=== PATIENT | female | born 1945 | race Caucasian/White ===

== ENCOUNTER 2021-02-01 23:34 | Inpatient (IN) | payer MEDICARE, OTHER, SELFPAY ==
[2021-02-01 23:59] VITALS: BP 131/64; PULSE 70; RESP 22; TEMP 36.3; O2SAT 84; BMI 24.5
[2021-02-02] VITALS (44 sets, daily range): BP systolic 92–130; BP diastolic 47–76; PULSE 57–90; RESP 16–26; TEMP 36.9; O2SAT 85–98; BMI 25.1
[2021-02-02] MEDS: albuterol 8 gm MDI 2 PUFF INHALATION (00:10)
--- NOTE | 2021-02-02 00:23 | XRR_ITS ---
PROCEDURE INFORMATION: Exam: XR Chest Exam date and time: 02/02/2021 12:23 AM Age: 75 years old Clinical indication: Dyspnea; Additional info: SOB TECHNIQUE: Imaging protocol: XR of the chest. Views: 1 view. COMPARISON: CR Chest 2 views* [id number] 04/04/2017 11:09 AM FINDINGS: Lungs: There are patchy bilateral interstitial infiltrates present in the mid and lower hemithoraces bilaterally, findings that suggest a bilateral interstitial pneumonia. Pleural spaces: Unremarkable. No pleural effusion. No pneumothorax. Heart/Mediastinum: Unremarkable. No cardiomegaly. Bones/joints: Unremarkable. XR/XR chest 1V portable [id number] IMPRESSION: Patchy bilateral interstitial opacities, findings suggesting a bilateral interstitial pneumonia.
--- NOTE | 2021-02-02 00:23 | ECG_ITS ---
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 Measurements Intervals [place] Rate: 70 P: 113 AL: 195 QRS: -14 QRSD: 88 T: 27 QT: 358 QTc: 388 Interpretive Statements SINUS RHYTHM POSSIBLE ANTERIOR MYOCARDIAL INFARCTION , OF INDETERMINATE AGE [30 ms Q WAVE IN V3/V4, OR R < 0.2 mV IN V4] INFERIOR MYOCARDIAL INFARCTION , OF INDETERMINATE AGE [40+ ms Q WAVE AND/OR ST/T ABNORMALITY IN II/aVF] No previous ECG available for comparison Electronically Signed On 02-02-2021 17:09:17 CDT by Kevin Luque M.D. [id number]
[2021-02-02 00:34] LABS: Basophils # 0.1 10^3/uL (0.0-0.1); Basophils % 0.5 %; Eosinophils % 0.1 %; Hematocrit 42.3 % (37.0-47.0); Hemoglobin 14.7 g/dL (11.5-15.3); Lymphocytes # 1.1 10^3/uL (0.8-4.8); Mean Corpuscular HGB Conc 34.8 g/dL (30.0-36.0); Mean Corpuscular Volume 97.9 fl (81-99); Mean Platelet Volume 10.5 fL (7.4-10.4); Monocytes # 0.8 10^3/uL (0.2-0.9); Monocytes % 3.7 %; Neutrophils # 19.36 10^3/uL (1.8-7.7); Neutrophils % 90.2 %; Nucleated Red Blood Cells % 0 %; Platelet Count 260 10^3/cmm (130-400); Red Blood Count 4.32 10^6/uL (4.1-5.3); Red Cell Distribution Width 14.7 % (12.1-15.1); White Blood Count 21.5 10^3/uL (4.0-10.0)
--- NOTE | 2021-02-02 00:45 | ED_ITS ---
HPI - SOB/Dyspnea General: Chief Complaint: Shortness of Breath/Dyspnea Stated Complaint: confused,sob Time Seen by Provider: 02/02/21 00:00 Source: patient Mode of arrival: ambulatory Limitations: no limitations History of Present Illness: HPI Narrative: 75-year-old female who is a longtime smoker states it her last 3 to 5 days she has been having increasing cough, shortness of breath. Patient when she arrived was 84% on room air had to be placed on 3 L. Per son in room patient is also had some confusion as well. Here she is able to tell me her name and the year but she is confused on some details. No known sick contacts. She denies any fever. Associated symptoms: Deny abdominal pain, chest pain, nausea or vomiting Review of Systems Const: Reports: chills Eyes: Denies: blurry vision or eye discomfort ENMT: Denies: throat pain or dental pain Card: Denies: chest pain Resp: Reports: dyspnea and non-productive cough GI: Denies: abdominal pain, nausea, vomiting or diarrhea : Denies: dysuria Musc: Denies: neck pain or back pain Skin/Breast: Denies: rash Neuro: Reports: confusion Psych: Denies: depression Bradley/Lymph: Denies: easy bruising All/Imm: Denies: urticaria Physical Exam Const: COMMON NORMALS: no acute distress, patient oriented x3 and healthy appearing HENMT: COMMON NORMALS: normocephalic and atraumatic HEAD & SCALP: normocephalic and atraumatic Eye: COMMON NORMALS: Equal, round and reactive pupils present and EOMs intact bilaterally PUPIL: Yes Equal, round and reactive pupils present Neck/C-Spine: COMMON NORMALS: full ROM and supple Chest: COMMONS NORMALS: normal inspection of the chest and normal palpation of entire chest wall Resp: COMMON NORMALS: normal respiratory effort, No retractions and No use of accessory muscles AUSCULTATION: rales and wheezes Cardio: COMMON NORMALS: regular rate, regular rhythm and No murmurs present (Cardio) RATE: regular rate RHYTHM: regular rhythm GI: COMMON NORMALS: Normal to inspection, nondistended, normoactive bowel sounds present, Soft to palpation, non-tender and no masses PALPATION: Yes Soft to palpation Extremity: COMMON NORMALS: normal to inspection and full ROM Neuro: COMMON NORMALS: patient oriented x3, moves all extremities and no focal motor deficits Psych: COMMON NORMALS: mental status grossly normal, Normal thought process present and cooperative THOUGHT PROCESS: Normal thought process present Skin: COMMON NORMALS: no rashes or lesions noted and no wounds GENERAL SKIN EXAM: no rashes or lesions noted Course Vital Signs: Vital signs: Vital Signs Temperature 97.3 F L 02/01/21 23:59 Pulse Rate 70 02/02/21 00:43 Respiratory Rate 20 H 02/02/21 00:43 Blood Pressure 117/63 02/02/21 00:43 Pulse Oximetry 94 02/02/21 00:43 MDM - SOB/Dyspnea MDM Narrative: Medical decision making narrative: Patient presents here with cough along with shortness of breath. Patient's x-ray did show a right lower lobe pneumonia. Also concern for possible mass on the right side and will get a CT to further define. Patient is requiring oxygen here and does have an elevated white count. I started on IV antibiotics. Spoke to hospitalist and will admit at this time. Her Covid here is negative. Lab Data: Labs: Lab Results 02/02/21 02/02/21 02/02/21 Range/Units 00:04 00:04 00:04 WBC 21.5 H (4.0-10.0) 10^3/ uL RBC 4.32 (4.1-5.3) 10^6/u L Hgb 14.7 (11.5-15.3) g/dL Hct 42.3 (37.0-47.0) % MCV 97.9 (81-99) fl MCH 34.0 (28.0-34.0) pg MCHC 34.8 (30.0-36.0) g/dL RDW 14.7 (12.1-15.1) % Plt Count 260 (130-400) 10^3/c mm MPV 10.5 H (7.4-10.4) fL Neut % (Auto) 90.2 % Lymph % (Auto) 5.0 % Mercer % (Auto) 3.7 % Eos % (Auto) 0.1 % Baso % (Auto) 0.5 % Neut # (Auto) 19.36 H (1.8-7.7) 10^3/u L Lymph # (Auto) 1.1 (0.8-4.8) 10^3/u L Mercer # (Auto) 0.8 (0.2-0.9) 10^3/u L Eos # (Auto) 0.0 (0.0-0.8) 10^3/u L Baso # (Auto) 0.1 (0.0-0.1) 10^3/u L Nucleated RBC % (a uto) 0 % Nucleated RBCs # 0.0 /100WBC PT 14.80 (12.1-14.9) SECO NDS INR 1.13 (0.8-1.2) Specimen Type Sample Site O2 Sat Pulse Oxime try % ABG pH (7.35-7.45) ABG pCO2 (35-45) mmHg ABG pO2 (80.0-100.0) mmH g ABG HCO3 (22-26) mmol/L ABG Base Excess (-2.0-2.0) mmol/ L William Test Hematocrit (37-47) % O2 Delivery Device O2 Liters/Min % Broaching Machine Set Up Operator ID Sodium 138 (136-145) mmol/L Potassium 3.1 L (3.5-5.1) mmol/L Chloride 101 (98-107) mmol/L Carbon Dioxide 19 L (22-29) mmol/L Anion Gap 21.1 H (5-19) BUN 22 (8-23) mg/dL Creatinine 0.7 (0.5-0.9) mg/dL GFR Calculation Not Reportable Glucose 140 H (65-115) mg/dL Calculated Osmolal ity 292 (285-295) mOsm/k g Lactic Acid (0.5-2.2) mmol/L Calcium 8.3 L (8.5-10.5) mg/dL Magnesium 2.0 (1.7-2.3) mg/dL Total Bilirubin 0.2 (0.15-1.2) mg/dL AST 20 (0-32) U/L ALT 8 (0-33) U/L Alkaline Phosphata se 63 (35-105) IU/L C-Reactive Protein 81.3 H (0.0-4.9) mg/L NT-Pro-B Natriuret Pep 781 H (0-125) pg/mL Total Protein 6.9 (6.6-8.7) g/dL Albumin 4.3 (3.5-5.2) g/dL Globulin 2.6 (1.3-4.6) g/dL SARS-CoV-2 Ag (Rap id) (Negative) 02/02/21 02/02/21 02/02/21 Range/Units 00:32 00:42 01:20 WBC (4.0-10.0) 10^3/ uL RBC (4.1-5.3) 10^6/u L Hgb (11.5-15.3) g/dL Hct (37.0-47.0) % MCV (81-99) fl MCH (28.0-34.0) pg MCHC (30.0-36.0) g/dL RDW (12.1-15.1) % Plt Count (130-400) 10^3/c mm MPV (7.4-10.4) fL Neut % (Auto) % Lymph % (Auto) % Mercer % (Auto) % Eos % (Auto) % Baso % (Auto) % Neut # (Auto) (1.8-7.7) 10^3/u L Lymph # (Auto) (0.8-4.8) 10^3/u L Mercer # (Auto) (0.2-0.9) 10^3/u L Eos # (Auto) (0.0-0.8) 10^3/u L Baso # (Auto) (0.0-0.1) 10^3/u L Nucleated RBC % (a uto) % Nucleated RBCs # /100WBC PT (12.1-14.9) SECO NDS INR (0.8-1.2) Specimen Type Arterial Sample Site Radial, right O2 Sat Pulse Oxime try 90.2 % ABG pH 7.47 H (7.35-7.45) ABG pCO2 27.0 L (35-45) mmHg ABG pO2 60.4 L (80.0-100.0) mmH g ABG HCO3 19.5 L (22-26) mmol/L ABG Base Excess -2.7 L (-2.0-2.0) mmol/ L William Test Pos Hematocrit 47.0 (37-47) % O2 Delivery Device Nc O2 Liters/Min 2.5 % Broaching Machine Set Up Operator ID Rieri Sodium (136-145) mmol/L Potassium (3.5-5.1) mmol/L Chloride (98-107) mmol/L Carbon Dioxide (22-29) mmol/L Anion Gap (5-19) BUN (8-23) mg/dL Creatinine (0.5-0.9) mg/dL GFR Calculation Glucose (65-115) mg/dL Calculated Osmolal ity (285-295) mOsm/k g Lactic Acid 0.9 (0.5-2.2) mmol/L Calcium (8.5-10.5) mg/dL Magnesium (1.7-2.3) mg/dL Total Bilirubin (0.15-1.2) mg/dL AST (0-32) U/L ALT (0-33) U/L Alkaline Phosphata se (35-105) IU/L C-Reactive Protein (0.0-4.9) mg/L NT-Pro-B Natriuret Pep (0-125) pg/mL Total Protein (6.6-8.7) g/dL Albumin (3.5-5.2) g/dL Globulin (1.3-4.6) g/dL SARS-CoV-2 Ag (Rap id) Negative (Negative) Imaging Data^: CXR: Attestation: I personally reviewed and interpreted this imaging study as follows: My impression: rll pneumonia EKG Data^: EKG 1: Attestation: I personally reviewed and interpreted this EKG as follows: EKG Interpretation Date: 02/02/21 EKG interpretation time: 00:40 Interpretation: nsr hr [address] or t wave abnormalities qrs 88 qtc 379 Discharge Plan Discharge Patient Disposition: Admitted As Inpatient Clinical Impression: Community acquired pneumonia Qualifiers: Laterality: right Lung location: middle lobe of lung Qualified Code(s): J18.9 - Pneumonia, unspecified organism Condition: Stable Coding Level of Care Code ED Land 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
[2021-02-02 00:46] LABS: INR 1.13 (0.8-1.2)
[2021-02-02 01:03] LABS: Alanine Aminotransferase 8 U/L (0-33); Albumin Level 4.3 g/dL (3.5-5.2); Alkaline Phosphatase 63 IU/L (35-105); Anion Gap 21.1 (5-19); Aspartate Amino Transferase 20 U/L (0-32); Blood Urea Nitrogen 22 mg/dL (8-23); C Reactive Protein 81.3 mg/L (0.0-4.9); Calcium 8.3 mg/dL (8.5-10.5); Carbon Dioxide 19 mmol/L (22-29); Chloride 101 mmol/L (98-107); Creatinine Clr Calc Pharmacy 50.9057; Globulin 2.6 g/dL (1.3-4.6); Glucose 140 mg/dL (65-115); NT Pro B Type Natriuretic Pept 781 pg/mL (0-125); Osmolality Calculated 292 mOsm/kg (285-295); Potassium 3.1 mmol/L (3.5-5.1); Sodium 138 mmol/L (136-145); Total Bilirubin 0.2 mg/dL (0.15-1.2); Total Protein 6.9 g/dL (6.6-8.7)
[2021-02-02 01:07] LABS: Lactic Sepsis W/Reflex 0.9 mmol/L (0.5-2.2)
[2021-02-02 01:28] LABS: SARS Covid-2 Antigen Negative (Negative)
[2021-02-02 01:43] LABS: ABG PH Result 7.47 (7.35-7.45); Base Excess ABG -2.7 mmol/L (-2.0-2.0); Blood Gas Allen Test Pos; Blood Gas Sample Type Arterial; HCO3 ABG 19.5 mmol/L (22-26); PO2 ABG 60.4 mmHg (80.0-100.0)
[2021-02-02 01:46] LABS: Blood Gas LPM 2.5 %; Blood Gas Sample Site Radial, right; Oxygen Device NC
[2021-02-02] MEDS: dexamethasone 4 mg/mL INJ 10 MG IVP (01:50)
[2021-02-02] MEDS: cefTRIAXone 1,000 MG in sodium chloride 0.9% (plus) 50 ML 100 MG IV (02:01)
[2021-02-02] MEDS: azithromycin 500 MG in sodium chloride 0.9% 250 ML 250 MG IV (02:03)
--- NOTE | 2021-02-02 02:24 | CTR_ITS ---
PROCEDURE INFORMATION: Exam: CT Chest With Contrast; Diagnostic Exam date and time: 02/02/2021 2:24 AM Age: 75 years old Clinical indication: Abnormal findings; Abnormal radiologic exam of lung or chest; Additional info: Lung mass TECHNIQUE: Imaging protocol: Diagnostic computed tomography of the chest with contrast. Radiation optimization: All CT scans at this facility use at least one of these dose optimization techniques: automated exposure control; mA and/or kV adjustment per patient size (includes targeted exams where dose is matched to clinical indication); or iterative reconstruction. Contrast material: OMNI 300; Contrast volume: 95 ml; Contrast route: INTRAVENOUS (IV); COMPARISON: CR (CHEST, ) 02/02/2021 1:24 AM RADIATION DOSE METRICS: Total DLP (mGy-cm): 421.53 FINDINGS: Lungs: There is a background of centrilobular emphysema and pulmonary fibrosis. There are patchy ground-glass opacities present within the hemithoraces bilaterally with some consolidation seen in the lower hemithoraces, findings compatible with a bilateral interstitial pneumonia. There is no evidence for pulmonary mass. Pleural spaces: Unremarkable. No pneumothorax. No pleural effusion. Heart: Unremarkable. No cardiomegaly. No pericardial effusion. Aorta: Unremarkable. No aortic aneurysm. Lymph nodes: Unremarkable. No enlarged lymph nodes. Bones/joints: Unremarkable. No acute fracture. Soft tissues: Unremarkable. CT/CT chest w con* [id number] IMPRESSION: 1. Background of centrilobular emphysema and pulmonary fibrosis. 2. Patchy ground-glass opacities present in the hemithoraces bilaterally with consolidation seen in the lower hemithoraces, findings compatible with bilateral interstitial pneumonia. No pulmonary masses are seen. Commonly reported imaging features of COVID-19 pneumonia are present. Other processes such as influenza pneumonia and organizing pneumonia, as can be seen with drug toxicity and connective tissue disease, can cause a similar imaging pattern. (Reference: Bernardo) REFERENCES: Bernardo Stnaton, et al., Radiological Society of [place] Expert Consensus Statement on Reporting Chest CT Findings Related to COVID-19. Endorsed by the Society of Thoracic Radiology, the [place] [employer], and RSNA. Published September 04, 2019. Radiation Dose CTDIVOL = (mGy): DLP = 421.53 (mGy-cm)
[2021-02-02] MEDS: iohexol 300 mg/mL 100 mL Btl IV (03:02)
--- NOTE | 2021-02-02 05:22 | PM.HP ---
Providers/Chief Complaint Admitting Physician: Laura Cerda MD Primary Care Provider: Amelia Jackman MD Chief Complaint: confused,sob History of Present Illness Malini Wild is a 75 year old female Presenting to the hospital today complaining worsening shortness of breath over the past 1 week. Associated with cough and sputum production. On arrival at the ER O2 sat was noted to be 84% on room air, requiring between 3 to 6 L/min of supplemental oxygen. This is a new oxygen requirement for the patient. She is a lifelong smoker. Denies any fever chills chest pain palpitations or hemoptysis.. CT of the chest is showing bilateral diffuse infiltrates concerning for COVID-19 pneumonia. Home medication list is not currently available for review. Review of Systems General: Reports: 10 or more systems reviewed and unremarkable except in HPI and below Const: Denies: fever(s), chills or body aches Eyes: Denies: change in vision, blurry vision or photophobia ENMT: Reports: hoarseness; Denies: throat pain, enlarged tonsils, odynophagia or nasal congestion Card: Denies: chest pain, palpitations, irregular heart rhythm, edema, swelling of feet/ankles, lightheadedness, pre-syncope, dyspnea on exertion or orthopnea Resp: Reports: dyspnea and productive cough; Denies: non-productive cough, wheezing, stridor, pain on inspiration, change in phlegm color, hemoptysis or chest congestion GI: Denies: abdominal pain, nausea, vomiting, hematemesis, coffee ground emesis, dysphagia, heartburn, diarrhea, constipation, GI cramping, change in stool character, hematochezia or melena : Denies: flank pain, difficulty voiding, dysuria, urinary frequency, urinary urgency, urinary hesitancy or hematuria Musc: Denies: neck pain, back pain, extremity pain, joint swelling, joint warmth or deformity Neuro: Denies: headache(s), numbness in extremities, weakness in extremities, sensory changes, difficulty walking, frequent falls, dizziness, vertigo, behavioral changes, Slurred speech present or seizure-like activity Psych: Denies: anxiety, depression, suicidal ideation or homicidal ideation Endo: Denies: polyuria, polydipsia, tired all the time, cold intolerance or hot flashes Bradley/Lymph: Denies: easy bruising or easy bleeding Medications/Allergies Allergies Allergy/AdvReac Type Severity Reaction Status Date / Time No Known Allergies Allergy Verified 12/17/20 14:50 Vitals/I&O/Wt Last Vital Signs Temp 97.3 F L 02/01/21 23:59 Pulse 69 02/02/21 04:13 Resp 16 02/02/21 04:13 BP 122/68 02/02/21 04:13 Pulse Ox 90 02/02/21 04:13 02/01/21 02/01/21 02/02/21 14:59 22:59 06:59 Intake Total 300 / 300 Balance 300 / 300 Weight last 48 hrs Weight 58.967 kg Physical Exam Narrative: EXAM NARRATIVE: GENERAL: Awake, alert, in no acute distress. [] HEENT: Normocephalic, atraumatic, PERRLA. [] CHEST: Scattered crackles to auscultation bilaterally in all areas [] CVS: S1, S2 normal. No murmur, rubs, gallops. Peripheral pulses palpable. [] ABDOMEN: Soft, nontender. Nondistended. Bowel sounds heard. [] NEUROVASCULAR: Awake, alert. Power 5/5 all extremities. DTR+ [] EXTREMITIES: No edema. [] Data : 02/02/21 00:04 02/02/21 00:04 Other Labs: Laboratory Results WBC 21.5 10^3/uL (4.0-10.0) H 02/02/21 00:04 RBC 4.32 10^6/uL (4.1-5.3) 02/02/21 00:04 Hgb 14.7 g/dL (11.5-15.3) 02/02/21 00:04 Hct 42.3 % (37.0-47.0) 02/02/21 00:04 MCV 97.9 fl (81-99) 02/02/21 00:04 MCH 34.0 pg (28.0-34.0) 02/02/21 00:04 MCHC 34.8 g/dL (30.0-36.0) 02/02/21 00:04 RDW 14.7 % (12.1-15.1) 02/02/21 00:04 Plt Count 260 10^3/cmm (130-400) 02/02/21 00:04 MPV 10.5 fL (7.4-10.4) H 02/02/21 00:04 Neut % (Auto) 90.2 % 02/02/21 00:04 Lymph % (Auto) 5.0 % 02/02/21 00:04 Dolores % (Auto) 3.7 % 02/02/21 00:04 Eos % (Auto) 0.1 % 02/02/21 00:04 Baso % (Auto) 0.5 % 02/02/21 00:04 Neut # (Auto) 19.36 10^3/uL (1.8-7.7) H 02/02/21 00:04 Lymph # (Auto) 1.1 10^3/uL (0.8-4.8) 02/02/21 00:04 Dolores # (Auto) 0.8 10^3/uL (0.2-0.9) 02/02/21 00:04 Eos # (Auto) 0.0 10^3/uL (0.0-0.8) 02/02/21 00:04 Baso # (Auto) 0.1 10^3/uL (0.0-0.1) 02/02/21 00:04 Nucleated RBC % (auto) 0 % 02/02/21 00:04 Nucleated RBCs # 0.0 /100WBC 02/02/21 00:04 PT 14.80 SECONDS (12.1-14.9) 02/02/21 00:04 INR 1.13 (0.8-1.2) 02/02/21 00:04 Specimen Type Arterial 02/02/21 01:20 Sample Site Radial, right 02/02/21 01:20 O2 Sat Pulse Oximetry 90.2 % 02/02/21 01:20 ABG pH 7.47 (7.35-7.45) H 02/02/21 01:20 ABG pCO2 27.0 mmHg (35-45) L 02/02/21 01:20 ABG pO2 60.4 mmHg (80.0-100.0) L 02/02/21 01:20 ABG HCO3 19.5 mmol/L (22-26) L 02/02/21 01:20 ABG Base Excess -2.7 mmol/L (-2.0-2.0) L 02/02/21 01:20 William Test Pos 02/02/21 01:20 Hematocrit 47.0 % (37-47) 02/02/21 01:20 O2 Delivery Device Nc 02/02/21 01:20 O2 Liters/Min 2.5 % 02/02/21 01:20 Electroplater Helper ID Shane 02/02/21 01:20 Sodium 138 mmol/L (136-145) 02/02/21 00:04 Potassium 3.1 mmol/L (3.5-5.1) L 02/02/21 00:04 Chloride 101 mmol/L (98-107) 02/02/21 00:04 Carbon Dioxide 19 mmol/L (22-29) L 02/02/21 00:04 Anion Gap 21.1 (5-19) H 02/02/21 00:04 BUN 22 mg/dL (8-23) 02/02/21 00:04 Creatinine 0.7 mg/dL (0.5-0.9) 02/02/21 00:04 GFR Calculation Not Reportable 02/02/21 00:04 Glucose 140 mg/dL (65-115) H 02/02/21 00:04 Calculated Osmolality 292 mOsm/kg (285-295) 02/02/21 00:04 Lactic Acid 0.9 mmol/L (0.5-2.2) 02/02/21 00:32 Calcium 8.3 mg/dL (8.5-10.5) L 02/02/21 00:04 Magnesium 2.0 mg/dL (1.7-2.3) 02/02/21 00:04 Total Bilirubin 0.2 mg/dL (0.15-1.2) 02/02/21 00:04 AST 20 U/L (0-32) 02/02/21 00:04 ALT 8 U/L (0-33) 02/02/21 00:04 Alkaline Phosphatase 63 IU/L (35-105) 02/02/21 00:04 C-Reactive Protein 81.3 mg/L (0.0-4.9) H 02/02/21 00:04 NT-Pro-B Natriuret Pep 781 pg/mL (0-125) H 02/02/21 00:04 Total Protein 6.9 g/dL (6.6-8.7) 02/02/21 00:04 Albumin 4.3 g/dL (3.5-5.2) 02/02/21 00:04 Globulin 2.6 g/dL (1.3-4.6) 02/02/21 00:04 SARS-CoV-2 Ag (Rapid) Negative (Negative) 02/02/21 00:42 Impressions Chest X-Ray 02/02/21 00:23 IMPRESSION: Patchy bilateral interstitial opacities, findings suggesting a bilateral interstitial pneumonia. Chest CT 02/02/21 02:24 IMPRESSION: 1. Background of centrilobular emphysema and pulmonary fibrosis. 2. Patchy ground-glass opacities present in the hemithoraces bilaterally with consolidation seen in the lower hemithoraces, findings compatible with bilateral interstitial pneumonia. No pulmonary masses are seen. Commonly reported imaging features of COVID-19 pneumonia are present. Other processes such as influenza pneumonia and organizing pneumonia, as can be seen with drug toxicity and connective tissue disease, can cause a similar imaging pattern. (Reference: Bernardo) REFERENCES: Bernardo Stanton, et al., Radiological Society of [place] Expert Consensus Statement on Reporting Chest CT Findings Related to COVID-19. Endorsed by the Society of Thoracic Radiology, the [place] [employer], and RSNA. Published September 04, 2019. Radiation Dose CTDIVOL = (mGy): DLP = 421.53 (mGy-cm) Micro: Microbiology 02/02/21 01:43 Blood Culture - Preliminary Blood SPECIMEN COLLECTED 02/02/21 01:43 Blood Culture - Preliminary Blood SPECIMEN COLLECTED A&P Assessment and plan (1) Bilateral pneumonia: Status: Acute (2) Community acquired pneumonia: Status: Acute Qualifiers: Laterality: right Lung location: middle lobe of lung Qualified Code(s): J18.9 - Pneumonia, unspecified organism Additional A&P Information Patient presenting with cough dyspnea and CT chest with bilateral pneumonia. Considered for viral pneumonitis such as COVID-19 pneumonia versus community-acquired pneumonia dexamethasone 6mg IVP daily duoneb q6h, budesonide q12h empiric CTX and azithromycin Flutter valve/spirometer at bedside trend inflammatory markers including CRP, LDH, D dimer, Ferritin Check Covid PCR, rapid antigen negative Check MRSA PCR, sputum culture and Gram stain. Attestations Medical Necessity Statement*: Anticipate needing greater than 2 midnight admission for management of above pneumonia. Coding Level of Care Code Acute Microcomputer Support Specialist for Chg Fwd Diagnoses Bilateral pneumonia J18.9 Community acquired pneumonia J18.9 Laterality: right Lung location: middle lobe of lung
--- NOTE | 2021-02-02 06:24 | PC.NURSE ---
family called and advised that patient has anxiety and might need something for anxiety at some point during her stay.
[2021-02-02] MEDS: budesonide 0.5 mg/2 mL Neb INHALATION ×2 (07:41→21:34)
[2021-02-02] MEDS: ipratropium-albuterol 3 mL Neb INHALATION ×4 (07:41→23:27)
[2021-02-02] MEDS: pantoprazole DR 40 mg Tablet PO (09:02)
--- NOTE | 2021-02-02 09:09 | PC.PHAR ---
Patient verified medications, patient was a poor historian due to being in and out of sleep. Patient states she is still taking Citalopram 20 mg once daily - last filled on 10/16/20 x 30 days. Pt states she no longer takes Ramipril 5mg BID - last filled on 12/18/20 x 30 days
[2021-02-02 10:13] LABS: D Dimer 0.71 ug/mIFEU (0-0.59)
[2021-02-02 11:39] LABS: Influenza A by IFA Negative (Negative); Influenza B by IFA Negative (Negative)
[2021-02-02] MEDS: remdesivir 200 MG in sodium chloride 0.9% (100 ml) 100 ML 100 MG IV (12:16)
--- NOTE | 2021-02-02 16:05 | PM.PN ---
Subjective Subjective: Interval history: Admitted overnight. H&P and labs appreciated. On examination today earlier in the morning patient was on 6 L, alert and oriented. While transferring to the floor patient desaturated to 60% and needed to be placed on heated high flow. On my repeat examination in the evening patient was mildly confused though AAO x2, she is currently on 50 L 65%. Has remained hemodynamically stable otherwise. Saturating 91% with heart rate of 79 bpm Vitals/I&O/Wt Last Vital Signs Temp 97.3 F L 02/01/21 23:59 Pulse 72 02/02/21 15:45 Resp 20 H 02/02/21 15:45 BP 124/60 02/02/21 13:47 Pulse Ox 92 02/02/21 15:45 02/02/21 02/02/21 02/02/21 06:59 14:59 22:59 Intake Total 300 / 300 100 / 100 Balance 300 / 300 100 / 100 Weight last 48 hrs Weight 60.419 kg Weight 58.967 kg Physical Exam Narrative: EXAM NARRATIVE: General: No acute distress, AO x 2, mildly confused HEENT: PERRLA, pupils bilaterally equal and reactive Chest: Bilateral bronchial breath sounds all over the lung mendoza, but right more than left, occasional rhonchi present all over the lung mendoza equal good air entry bilaterally CVS: S1-S2 regular, no murmurs, no tachycardia, no gallops, no rubs Abdomen: Soft, nontender, no organomegaly, bowel sounds present Neuro: No focal deficits, no facial deformity, AO x3, power 5/5 in all limbs Data : 02/02/21 00:04 02/02/21 00:04 Micro: Microbiology 02/02/21 01:43 Blood Culture - Preliminary Blood SPECIMEN COLLECTED 02/02/21 01:43 Blood Culture - Preliminary Blood SPECIMEN COLLECTED A&P Assessment and plan (1) Hypoxia: Status: Acute (2) Bilateral pneumonia: Status: Acute (3) Community acquired pneumonia: Status: Acute Qualifiers: Laterality: right Lung location: middle lobe of lung Qualified Code(s): J18.9 - Pneumonia, unspecified organism (4) Hypertension: Status: Acute Additional A&P Information Severe hypoxia secondary to bilateral pneumonia: Cannot rule out Covid pneumonia given the CT findings. COVID-19 PCR sent out. Isolation precautions. Given patient is requiring high oxygen supplementation will start patient on treatment for COVID-19 pneumonia for now. Check ABG. Start patient on dexamethasone 6 mg IV daily. Start on remdesivir to finish a 5-day course. If COVID-19 PCR comes back negative we will stop. Vitamin C, zinc. DuoNebs every 6 hour, budesonide twice daily Pulmonary toilet with incentive spirometry flutter valve. We will monitor inflammatory markers including ferritin, ESR, CRP, D-dimer, fibrinogen. CT chest with contrast done on admission. Not sure of pulmonary embolism. D-dimer mildly elevated. For now we will continue to monitor if D-dimer is getting highly elevated will start patient on full dose anticoagulation. For now continue with Lovenox 40 mg subcu daily at prophylactic dose. White count elevated. Check sputum culture, procalcitonin, urine Legionella, bacterial antigen, blood culture. Continue with treatment for community-acquired pneumonia with ceftriaxone and azithromycin for now. If patient worsens or has high-grade fever will start patient on vancomycin and Zosyn. Given hypoxia will try to keep patient as negative as possible. Fluid restriction. Strict input output charting, daily weights. Check echocardiogram. Hypertension: Goal of pressure less than 140/90 G. For now continue with home dose of amlodipine 5 mg daily. Continue other chronic home medication including citalopram and duloxetine. Full code. Lovenox for DVT prophylaxis. Protonix for PUD prophylaxis. Attestations Medical Necessity Statement*: Patient requires further hospitalization for management of severe, while COVID-19 pneumonia has been ruled out. Time Spent in Patient Care: Greater than 35 minutes (>than 50% of time spent in counselling and/or direct pt care on unit). 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 F[facility] Diagnoses Hypoxia R09.02 Bilateral pneumonia J18.9 Community acquired pneumonia J18.9 Laterality: right Lung location: middle lobe of lung Hypertension I10
[2021-02-02 16:16] LABS: Blood Gas Allen Test Pos; Blood Gas Sample Type Arterial; Potassium Level - ABG 2.9 mmol/L (3.5-5.0)
[2021-02-02 16:18] LABS: Blood Gas Sample Site Radial, right
[2021-02-02 17:10] LABS: Procalcitonin 0.32 ng/mL (0-0.5); Thyroid Stimulating Hormone 0.26 uIU/mL (0.27-4.20)
[2021-02-02 17:20] LABS: Iron 40 ug/dL (37-145); Percent Saturation 17.3 % (20-50); Total Iron Binding Capacity 230 mcg/dl; Unsaturated Iron Binding 190 ug/dL (112-347)
[2021-02-02] MEDS: ascorbic acid 500 mg Tablet PO (18:28)
--- NOTE | 2021-02-02 18:31 | PC.NURSE ---
PT GOT UP AND WAS IN THE HALLWAY UNCOVERED, SHE HAD PULLED HER HEATED HIGH FLOW TUBING APART. PT REORIENTED AND REDIRECTED TO ROOM AND BED.
[2021-02-02] MEDS: haloperidol inj 5 mg/mL INJ 1 mL 1 MG IVP (19:37)
[2021-02-02] MEDS: dexmedetomidine 400 MCG in sodium chloride 0.9% (100 ml) 100 ML IV (20:12)
--- NOTE | 2021-02-02 20:54 | PC.NURSE ---
This underwriter went to get report from [facility], while getting report patient became agitated and started to get up out of bed. After this underwriter and [facility] tried to redirect the patient she started to walk towards the bathroom, pulling out her oxygen and breaking the nasal cannula. Code 10 was called. Patient was trying to push through people and tried biting nursing staff. After patient received Haldol then patient started to calm down. Precedex was started and patient is now calm and resting in bed. Will continue to monitor.
--- NOTE | 2021-02-02 22:25 | PC.NURSE ---
Transfer Note from Med-Surg to ICU Patient transferred to ICU room 1 from med-surg via bed. Handoff received from ANDREW Elder. Patient oriented to environment and equipment. Covering service notified. Orders reviewed and will continue to monitor. Family and/or pharmaceutical service representative notified.
[2021-02-03] VITALS (152 sets, daily range): BP systolic 92–157; BP diastolic 44–83; PULSE 53–118; RESP 17–35; TEMP 36.3–37.4; O2SAT 78–98; BMI 25.7
[2021-02-03] MEDS: dexamethasone 4 mg/mL INJ 6 MG IVP (02:44)
[2021-02-03] MEDS: azithromycin 500 MG in sodium chloride 0.9% 250 ML 250 MG IV (02:44)
[2021-02-03] MEDS: cefTRIAXone 1,000 MG in sodium chloride 0.9% (plus) 50 ML 100 MG IV (02:44)
[2021-02-03] MEDS: ipratropium-albuterol 3 mL Neb INHALATION ×4 (03:42→20:24)
[2021-02-03 04:19] LABS: Basophils % 0.2 %; Hematocrit 36.9 % (37.0-47.0); Hemoglobin 12.5 g/dL (11.5-15.3); Lymphocytes # 0.7 10^3/uL (0.8-4.8); Lymphocytes % 4.3 %; Mean Corpuscular HGB Conc 33.9 g/dL (30.0-36.0); Mean Corpuscular Hemoglobin 33.7 pg (28.0-34.0); Mean Corpuscular Volume 99.5 fl (81-99); Mean Platelet Volume 10.9 fL (7.4-10.4); Monocytes # 0.6 10^3/uL (0.2-0.9); Monocytes % 3.6 %; Neutrophils # 15.67 10^3/uL (1.8-7.7); Neutrophils % 91.5 %; Nucleated Red Blood Cells % 0.2 %; Platelet Count 206 10^3/cmm (130-400); Red Blood Count 3.71 10^6/uL (4.1-5.3); White Blood Count 17.1 10^3/uL (4.0-10.0)
[2021-02-03 04:35] LABS: D Dimer 1.48 ug/mIFEU (0-0.59)
[2021-02-03 04:40] LABS: C Reactive Protein 206.8 mg/L (0.0-4.9); Ferritin 100 ng/mL (15-150)
[2021-02-03 04:50] LABS: Procalcitonin 0.73 ng/mL (0-0.5); Thyroid Stimulating Hormone 0.23 uIU/mL (0.27-4.20)
[2021-02-03 05:01] LABS: Alanine Aminotransferase 10 U/L (0-33); Albumin Level 3.3 g/dL (3.5-5.2); Alkaline Phosphatase 68 IU/L (35-105); Anion Gap 18.1 (5-19); Aspartate Amino Transferase 40 U/L (0-32); Blood Urea Nitrogen 38 mg/dL (8-23); Calcium 7.8 mg/dL (8.5-10.5); Carbon Dioxide 23 mmol/L (22-29); Chloride 102 mmol/L (98-107); Globulin 2.4 g/dL (1.3-4.6); Glucose 135 mg/dL (65-115); Osmolality Calculated 301 mOsm/kg (285-295); Potassium 3.1 mmol/L (3.5-5.1); Sodium 140 mmol/L (136-145); Total Bilirubin 0.2 mg/dL (0.15-1.2); Total Protein 5.7 g/dL (6.6-8.7)
[2021-02-03] MEDS: remdesivir 100 MG in sodium chloride 0.9% (100 ml) 100 ML IV (05:04)
[2021-02-03] MEDS: enoxaparin 40 mg/0.4 mL Syringe SUBCUT (05:04)
--- NOTE | 2021-02-03 06:00 | XR_ITS ---
WS: [id number] Exam: XR chest 1V portable [id number] Date/Time of Exam: 02/03/2021 5:17 AM Reason For Exam: covid Comparison 02/02/2021. Increasing widespread bilateral pulmonary infiltrates since previous study. There is now more involve ment in the upper lobes. Mild cardiac enlargement. The mediastinum and osseous thorax are unremarkabl e. No pleural effusions. The lungs are fully expanded. XR/XR chest 1V portable [id number] IMPRESSION: 1. Increasing groundglass infiltrates throughout both lungs since the previous study. 2. Mild cardiac enlargement.
--- NOTE | 2021-02-03 06:17 | PC.NURSE ---
Shift Note Frequent safety and comfort rounds continue. Orders and/or nursing care completed as indicated. Patient monitored for response to intervention and treatment(s). Education provided includes treatment plan. Patient remains confused and cannot understand teaching plan at this time, reinforcement teaching will be necessary. She remains on heated high flow at 50 L and 100% FiO2. No wounds or skin issues noted at this time. Precedex is infusing in the left forearm IV site, please see MAR for infusion rate. Patient had no urine output or BM overnight. Patient remains confused this morning, upon awakening. Will continue to monitor.
--- NOTE | 2021-02-03 06:49 | PC.NURSE ---
Notify Family Patient son called this morning, requested to have the who is taking care of his mother call him today. Will make request known to oncoming nurse. Son also requested to be updated with any results such as COVID test as well as any testing/imaging performed. Updated son about patient condition, answered all questions.
[2021-02-03] MEDS: budesonide 0.5 mg/2 mL Neb INHALATION ×2 (08:18→20:24)
[2021-02-03 09:19] LABS: Free T4 Free Thyroxine 0.65 ng/dL (0.82-1.77); T3 Free 0.8 PG/ML (2.0-4.4)
[2021-02-03] MEDS: zinc gluconate 50 mg Tablet PO (09:44)
[2021-02-03] MEDS: citalopram 20 mg Tablet PO (09:44)
[2021-02-03] MEDS: duloxetine 30 mg Capsule PO (09:44)
[2021-02-03] MEDS: ascorbic acid 500 mg Tablet PO ×2 (09:44→18:02)
[2021-02-03] MEDS: pantoprazole DR 40 mg Tablet PO (09:44)
[2021-02-03] MEDS: apixaban 5 mg Tablet PO ×2 (09:47→20:53)
[2021-02-03 11:19] LABS: Add Urine Culture? No; Add Urine Microscopic? YES; Bacteria Urine 1+ /hpf; Bilirubin Urine Neg (Negative); Blood Urine 2+ (Negative); Glucose Urine UA Norm (Normal); Ketones Urine Negative (Negative); Leukocyte Esterase Urine Negative (Negative); Nitrate Urine Negative (Negative); Protein Urine Trace (Negative); RBC Urine 0-4 /hpf (0-2); Specific Gravity, Urine 1.015 (1.005-1.030); Squamous Epithelial Cell Urine 0-4 /hpf (0-5); Urine Appearance Clear (CLEAR); Urine Color Yellow (Yellow); Urobilinogen Urine Neg (Negative); pH Urine 5 (5-7)
[2021-02-03] MEDS: potassium chloride ER 20 mEq Tablet 40 MEQ PO (11:25)
[2021-02-03] MEDS: sodium chloride 0.9% 1,000 ML 50 ML IV (11:28)
[2021-02-03] MEDS: vancomycin 1,000 MG in sodium chloride 0.9% 250 ML 250 MG IV (12:11)
--- NOTE | 2021-02-03 14:38 | P.PN_ITS ---
Subjective Subjective: Interval history: Overnight patient had to be transferred to the ICU because of agitation and she required Precedex drip and was in high risk for intubation. Precedex drip was stopped at 5 AM. Today morning patient was a lot more calm, composed. Able to answer questions c ompletely. She was AO x2. Alert to herself and being in the hospital and reason for being in the hospital. On repeat examination in the afternoon patient was a lot more confused, pulling on her IVs and high flow for which she started back on Precedex. As per our conversation with the son patient has been getting more forgetful over last couple of years and being more confused for last 2 weeks. Patient has been experiencing difficulty in breathing for last 1 week. She was vaccinated for Covid in September. As per the son patient has been getting senile . Vitals/I&O/Wt Last Vital Signs Temp 98.6 F 02/03/21 04:00 Pulse 90 02/03/21 14:06 Resp 20 H 02/03/21 14:06 BP 104/55 02/03/21 06:05 Pulse Ox 90 02/03/21 14:06 02/02/21 02/03/21 02/03/21 22:59 06:59 14:59 Intake Total 50 / 150 413.816 / 563.816 250 / 250 Balance 50 / 150 413.816 / 563.816 250 / 250 Weight last 48 hrs Weight 61.859 kg Weight 60.419 kg Weight 58.967 kg Physical Exam Narrative: EXAM NARRATIVE: General: No acute distress, AO x 2, mildly confused HEENT: PERRLA, pupils bilaterally equal and reactive Chest: Bilateral bronchial breath sounds all over the lung mendoza, but right more than left, occasional rhonchi present all over the lung mendoza equal good air entry bilaterally CVS: S1-S2 regular, no murmurs, no tachycardia, no gallops, no rubs Abdomen: Soft, nontender, no organomegaly, bowel sounds present Neuro: No focal deficits, no facial deformity, AO x3, power 5/5 in all limbs Data : 02/03/21 03:28 02/03/21 03:28 Micro: Microbiology 02/02/21 01:43 Blood Culture - Preliminary Blood NEGATIVE TO DATE 02/02/21 01:43 Blood Culture - Preliminary Blood NEGATIVE TO DATE A&P Assessment and plan (1) AMS (altered mental status): Status: Acute (2) Hypoxia: Status: Acute (3) Bilateral pneumonia: Status: Acute (4) Community acquired pneumonia: Status: Acute Qualifiers: Laterality: right Lung location: middle lobe of lung Qualified Code(s): J18.9 - Pneumonia, unspecified organism (5) Hypertension: Status: Acute (6) Central hypothyroidism: Status: Acute (7) Dementia: Status: Acute Additional A&P Information AMS: 2/2 metabolic encephalopathy from sepsis due to pneumonia, hypoxia in set ting of baseline dementia. Check CTA head. C/w home dose of celexa, cymbalata. Add Aricept nightly. Wean precedex as able to. Sitter Frequest re-orientation. Severe hypoxia secondary to bilateral pneumonia: Cannot rule out Covid pneumonia given the CT findings. COVID-19 PCR sent out. Still pending. Isolation precautions. Given patient is requiring high oxygen supplementation will c/w treatment for COVID-19 pneumonia for now. Check ABG. Dexamethasone 6 mg IV daily. Remdesivir to finish a 5-day course. If COVID-19 PCR comes back negative we will stop. Vitamin C, zinc. DuoNebs every 6 hour, budesonide twice daily Pulmonary toilet with incentive spirometry flutter valve. We will monitor inflammatory markers including ferritin, ESR, CRP, D-dimer, fibrinogen. CT chest with contrast done on admission. Not sure of pulmonary embolism. D- dimer mildly elevated. Patient needing high O2 requirement so will start on full dose of AC with eliquis 5 mg BID. White count elevated, procal elevated. Check sputum culture, urine Legionella, bacterial antigen, blood culture. Azithromycin and vancomycin. Switch ceftriaxone to Zosyn. Given hypoxia will try to keep patient as negative as possible. Fluid restriction. Strict input output charting, daily weights. Check echocardiogram. Greco catheter. Hypertension: Goal of pressure less than 140/90 mmhg with MAP 65. Hold Amlo or now. Central hypothyroidism: Low TSH, low free T3 and T4. Can not check cortisol level as already on dexamethasone. 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 Full code. Lovenox for DVT prophylaxis. Protonix for PUD prophylaxis. Attestations Medical Necessity Statement*: Requires further hospitalization for management of sepsis secondary to pneumonia needing heated high flow, altered mental status most likely secondary from metabolic encephalopathy Time Spent in Patient Care: Greater than 35 minutes (>than 50% of time spent in counselling and/or direct pt care on unit) . Coding Level of Care Code Acute Mental Health Counselor for [facility] Fwd Diagnoses AMS (altered mental status) R41.82 Hypoxia R09.02 Bilateral pneumonia J18.9 Community acquired pneumonia J18.9 Laterality: right Lung location: middle lobe of lung Hypertension I10 Central hypothyroidism E03.8 Dementia F03.90
--- NOTE | 2021-02-03 14:39 | CTR_ITS ---
PROCEDURE INFORMATION: Exam: CT Angiography Head With Contrast, Arteriography Exam date and time: 02/03/2021 2:39 PM Age: 75 years old Clinical indication: Other: Confuion; Additional info: Confusion, central hypothroidism, pitutary adenoma TECHNIQUE: Imaging protocol: Computed tomography angiography of the head with contrast. Exam focused on the arteries. 3D rendering (Not supervised by radiologist): MIP and/or 3D reconstructed images were created by the technologist. Radiation optimization: All CT scans at this facility use at least one of these dose optimization techniques: automated exposure control; mA and/or kV adjustment per patient size (includes targeted exams where dose is matched to clinical indication); or iterative reconstruction. Contrast material: VISI 320; Contrast volume: 75 ml; Contrast route: INTRAVENOUS (IV); COMPARISON: No relevant prior studies available. RADIATION DOSE METRICS: Total DLP (mGy-cm): 1608.21 FINDINGS: ANTERIOR CIRCULATION: Right internal carotid artery: Unremarkable. Intracranial segment is patent with no significant stenosis. No aneurysm. Right middle cerebral artery: Unremarkable. No occlusion or significant stenosis. No aneurysm. Right anterior cerebral artery: Unremarkable. No occlusion or significant stenosis. No aneurysm. Left internal carotid artery: Unremarkable. Intracranial segment is patent with no significant stenosis. No aneurysm. Left middle cerebral artery: Unremarkable. No occlusion or significant stenosis. No aneurysm. Left anterior cerebral artery: Unremarkable. No occlusion or significant stenosis. No aneurysm. POSTERIOR CIRCULATION: Right vertebral artery: Unremarkable. No occlusion or significant stenosis. No aneurysm. Left vertebral artery: Unremarkable. No occlusion or significant stenosis. No aneurysm. Basilar artery: Unremarkable. No occlusion or significant stenosis. No aneurysm. Right posterior cerebral artery: Unremarkable. No occlusion or significant stenosis. No aneurysm. Left posterior cerebral artery: Unremarkable. No occlusion or significant stenosis. No aneurysm. Brain: No definite mass, mass effect, or midline shift. Cerebral ventricles: No ventriculomegaly. Bones/joints: Unremarkable. No acute fracture. Soft tissues: Unremarkable. CT/CT angio head [id number] IMPRESSION: No intracranial large arterial vessel stenosis or occlusion. Radiation Dose CTDIVOL = (mGy): DLP = 1608.21 (mGy-cm)
[2021-02-03] MEDS: benzonatate 100 mg Capsule PO ×2 (15:39→20:54)
[2021-02-03 15:48] LABS: Coronavirus Test Green County Not Detected
--- NOTE | 2021-02-03 16:05 | CTR_ITS ---
PROCEDURE INFORMATION: Exam: CTA Chest With Contrast Exam date and time: 02/03/2021 4:05 PM Age: 75 years old Clinical indication: Shortness of breath; Additional info: High dimer, high oxygen requirement TECHNIQUE: Imaging protocol: Computed tomographic angiography of the chest with contrast. 3D rendering (Not supervised by radiologist): MIP and/or 3D reconstructed images were created by the technologist. Radiation optimization: All CT scans at this facility use at least one of these dose optimization techniques: automated exposure control; mA and/or kV adjustment per patient size (includes targeted exams where dose is matched to clinical indication); or iterative reconstruction. Contrast material: VISI 320; Contrast volume: 75 ml; Contrast route: INTRAVENOUS (IV); COMPARISON: CT chest w con* [id number] 02/02/2021 2:57 AM RADIATION DOSE METRICS: Total DLP (mGy-cm): 575.79 FINDINGS: Pulmonary arteries: Evaluation for pulmonary embolism is nondiagnostic secondary to suboptimal contrast bolus timing. No significant dilation of the pulmonary arteries. Aorta: Unremarkable. No aortic aneurysm. No aortic dissection. Lungs: Patchy pneumonia changes diffusely scattered in both lungs. Negative for endobronchial occlusion. Moderate severity emphysema. Pleural spaces: Unremarkable. No pneumothorax. No pleural effusion. Heart: Mild multichamber cardiac dilation. Negative for pericardial effusion. RV/LV ratio is less than 0.9. Lymph nodes: Unremarkable. No enlarged lymph nodes. Bones/joints: Superior endplate concavity at L2. Thoracic spinal alignment is normal. No acute thoracic fractures. Soft tissues: Unremarkable. CT/CT angio chest PE protcl [id number] IMPRESSION: 1. Nondiagnostic evaluation for pulmonary embolism secondary to suboptimal contrast bolus timing. Repeat evaluation is recommended if strong clinical concern. 2. Extensive bilateral pneumonia. Nonspecific pattern. 3. Imaging features can be seen with COVID-19 pneumonia, though are nonspecific and can occur with a variety of infectious and noninfectious processes. (Reference: Bernardo) REFERENCES: Bernardo Stanton, et al., Radiological Society of [place] Expert Consensus Statement on Reporting Chest CT Findings Related to COVID-19. Endorsed by the Society of Thoracic Radiology, the [place] [employer], and RSNA. Published September 04, 2019. Radiation Dose CTDIVOL = (mGy): DLP = 575.79 (mGy-cm)
[2021-02-03] MEDS: iodixanol 320 mg/mL 100mL Btl IV ×2 (16:31→16:32)
--- NOTE | 2021-02-03 16:58 | PC.RESP ---
SMOKING CESSATION INFORMATION SENT TO PATIENT.
[2021-02-03] MEDS: piperacillin-tazobactam 3.375 GM in sodium chloride 0.9% (plus) 50 ML IV (17:51)
--- NOTE | 2021-02-03 20:02 | PC.NURSE ---
The patient was taken down for a CT angiogram at 1600. The patient was transferred on a non-rebreather. There were not complications while down at CT. The patient arrived back in their room at 1633
[2021-02-03] MEDS: donepezil 5 MG Tablet 10 MG PO (20:53)
[2021-02-04] VITALS (53 sets, daily range): BP systolic 102–155; BP diastolic 47–91; PULSE 52–108; RESP 14–33; TEMP 36.2–36.7; O2SAT 86–98
[2021-02-04] MEDS: ipratropium-albuterol 3 mL Neb INHALATION ×7 (00:29→23:18)
[2021-02-04] MEDS: piperacillin-tazobactam 3.375 GM in sodium chloride 0.9% (plus) 50 ML IV ×2 (01:05→07:48)
[2021-02-04] MEDS: dexamethasone 4 mg/mL INJ 6 MG IVP (02:11)
[2021-02-04] MEDS: azithromycin 500 MG in sodium chloride 0.9% 250 ML 250 MG IV (02:11)
[2021-02-04] MEDS: dexmedetomidine 400 MCG in sodium chloride 0.9% (100 ml) 100 ML IV ×3 (04:24→23:48)
[2021-02-04 04:39] LABS: ABG PCO2 34.6 mmHg (35-45); ABG PH Result 7.41 (7.35-7.45); Alveolar-Arterial Oxygen Gradi 79.7 mmHg (5-10); Arterial Blood Gas Hematocrit 38.1 % (37-47); Base Excess ABG -2.4 mmol/L (-2.0-2.0); Blood Gas Allen Test Pos; Blood Gas Operator Identificat HARKR; Blood Gas Sample Site Radial, left; Blood Gas Sample Type Arterial; Carboxyhemoglobin 0.5 %THgb (0.4-20.1); HCO3 ABG 21.7 mmol/L (22-26); HGB O2 Sat 87.9 % (95-100); Ionized Calcium Level - ABG 1.2 mmol/L (1.1-1.4); Methemoglobin 1.3 % (0.4-1.5); Oxygen Device HAG; Oxygen Saturation ABG 89.4; PO2 ABG 57.8 mmHg (80.0-100.0); Potassium Level - ABG 3.4 mmol/L (3.5-5.0); Total Hemoglobin 12.4 g/dL (12-16)
[2021-02-04] MEDS: sodium chloride 0.9% 1,000 ML 50 ML IV (04:48)
[2021-02-04] MEDS: remdesivir 100 MG in sodium chloride 0.9% (100 ml) 100 ML IV (05:46)
[2021-02-04] MEDS: levothyroxine 50 mcg Tablet PO (05:46)
--- NOTE | 2021-02-04 06:00 | USCV_ITS ---
Malini Wild Age: 75 Gender: F : 1945 Exam Date: 02/04/2021 06:16 Ordering Phys: Valeriano Catalan MD Technologist: Nori Tony Exam Location: [facility] [place] Indication: CHF BP: 110 / 43 HR: 54 Rhythm: Other Technical Quality: Adequate MEASUREMENTS (Male / Female) Normal Values 2D ECHO LV Diastolic Diameter PLAX 4.3 cm 4.2 - 5.9 / 3.9 - 5.3 cm LV Systolic Diameter PLAX 2.9 cm IVS Diastolic Thickness 1.6 cm 0.6 - 1.0 / 0.6 - 0.9 cm IVS Systolic Thickness 2.0 cm LVPW Diastolic Thickness 1.4 cm 0.6 - 1.0 / 0.6 - 0.9 cm LVPW Systolic Thickness 2.0 cm LVOT Diameter 2.0 cm LV Ejection Fraction 2D Teich 59.9 % LV Ejection Fraction MOD 2C 54.2 % LV Ejection Fraction 2C AL 54.3 % LA Diameter 3.1 cm LA Width 3.1 cm LA Height 4.8 cm RA Width 3.0 cm RA Height 4.0 cm Aorta at Sinotubular Diameter 2.2 cm M-MODE Aortic Annulus Diameter 2.4 cm LA Ao Ratio MM 1.4 MV E Point Septal Separation 0.2 cm DOPPLER AV Peak Velocity 181.0 cm/s LVOT Peak Velocity 101.0 cm/s AV Area Cont Eq vti 1.7 cm squared AV Area Cont Eq pk 1.8 cm squared MV Area PHT 3.9 cm squared MV E' Velocity 50.0 cm/s Mitral E to MV E' Ratio 8.5 Mitral E to LV E' Lateral Ratio 9.0 Mitral E to LV E' Septal Ratio 8.1 Right Atrial Pressure 15.0 mmHg PV Peak Velocity 105.0 cm/s RV Acceleration Time 0.1 s RV Ejection Time 0.4 s RV AcT/ET 0.2 FINDINGS Left Ventricle Normal left ventricular cavity size. Normal left ventricular systolic function. No regional wall motion abnormalities. Left ventricular ejection fraction is estimated at 59 %. Right Ventricle The right ventricle is normal in size and function. RVSP could not be calculated due to incomplete tricuspid regurgitation velocity profile. Right Atrium The right atrium is normal in size. Left Atrium The left atrium is normal in size. Mitral Valve Moderately thickened mitral valve. No mitral valve stenosis. Trace mitral valve regurgitation. Moderate mitral annular calcification. Aortic Valve Aortic valve sclerosis without stenosis. Trace aortic valve regurgitation. Tricuspid Valve Structurally normal tricuspid valve without significant stenosis or regurgitation. P Pulmonic Valve Structurally normal pulmonic valve without significant stenosis. There is no pulmonic regurgitation. Pericardium Normal pericardium without effusion. Aorta Normal ascending aorta dimension. CONCLUSIONS 1-Normal left ventricular cavity size. Normal left ventricular systolic function. No regional wall motion abnormalities. Left ventricular ejection fraction is estimated at 59 %. 2-There is no pericardial effusion. 3-No significant valve abnormalities. 4-Right atrial pressure is around 5 mm of mercury. 5-Right atrial pressure is around 20 mm of mercury or if patient is on vent 6-There are no prior echocardiogram studies to compare. Lolita Ramon MD (Electronically Signed) Final Date: 04 February 2021 19:03 S
--- NOTE | 2021-02-04 06:10 | PC.NURSE ---
Around 0400 patient started to have desaturation episode. RT notified, patient repositioned and NRB put on patient until RT arrived. Rt able to get patient saturation to 90% with HFNC at 100% and NRB also at 100%. ABG drawn and communications intern doctor notified. Per communications intern doctor patient placed on bipap. Patient saturation improved, and patient tolerating bipap fairly well. Patient remains afebrile throughout shift. Patient remains oriented to self and place, however confused otherwise. Tolerating PO. Will continue to monitor.
[2021-02-04 06:18] LABS: Basophils % 0.2 %; Hematocrit 35.7 % (37.0-47.0); Lymphocytes # 0.6 10^3/uL (0.8-4.8); Lymphocytes % 3.6 %; Mean Corpuscular HGB Conc 33.6 g/dL (30.0-36.0); Mean Corpuscular Hemoglobin 33.4 pg (28.0-34.0); Mean Corpuscular Volume 99.4 fl (81-99); Mean Platelet Volume 10.8 fL (7.4-10.4); Monocytes # 0.5 10^3/uL (0.2-0.9); Monocytes % 2.8 %; Neutrophils % 92.3 %; Nucleated Red Blood Cells # 0.1 /100WBC; Nucleated Red Blood Cells % 0.3 %; Platelet Count 222 10^3/cmm (130-400); Red Blood Count 3.59 10^6/uL (4.1-5.3); Red Cell Distribution Width 15.1 % (12.1-15.1)
[2021-02-04 06:32] LABS: Alanine Aminotransferase 11 U/L (0-33); Albumin Level 3.3 g/dL (3.5-5.2); Alkaline Phosphatase 89 IU/L (35-105); Anion Gap 18.4 (5-19); Aspartate Amino Transferase 36 U/L (0-32); Blood Urea Nitrogen 38 mg/dL (8-23); Calcium 8.2 mg/dL (8.5-10.5); Carbon Dioxide 20 mmol/L (22-29); Chloride 106 mmol/L (98-107); Globulin 2.8 g/dL (1.3-4.6); Glucose 121 mg/dL (65-115); Osmolality Calculated 302 mOsm/kg (285-295); Potassium 3.4 mmol/L (3.5-5.1); Sodium 141 mmol/L (136-145); Total Bilirubin 0.2 mg/dL (0.15-1.2); Total Protein 6.1 g/dL (6.6-8.7)
[2021-02-04 06:41] LABS: Procalcitonin 0.55 ng/mL (0-0.5)
[2021-02-04] MEDS: budesonide 0.5 mg/2 mL Neb INHALATION ×2 (08:24→20:07)
[2021-02-04 08:53] LABS: ABG PCO2 28.4 mmHg (35-45); ABG PH Result 7.49 (7.35-7.45); Alveolar-Arterial Oxygen Gradi 48.5 mmHg (5-10); Arterial Blood Gas Hematocrit 43.5 % (37-47); Base Excess ABG -0.8 mmol/L (-2.0-2.0); Carboxyhemoglobin 0.5 %THgb (0.4-20.1); HCO3 ABG 21.4 mmol/L (22-26); HGB O2 Sat 87.1 % (95-100); Ionized Calcium Level - ABG 1.1 mmol/L (1.1-1.4); Methemoglobin 1.2 % (0.4-1.5); Oxygen Device NC; Oxygen Saturation ABG 88.6; PO2 ABG 52.6 mmHg (80.0-100.0); Total Hemoglobin 14.2 g/dL (12-16)
[2021-02-04] MEDS: duloxetine 30 mg Capsule PO (09:04)
[2021-02-04] MEDS: ascorbic acid 500 mg Tablet PO ×2 (09:04→17:02)
[2021-02-04] MEDS: citalopram 20 mg Tablet PO (09:04)
[2021-02-04] MEDS: benzonatate 100 mg Capsule PO (09:04)
[2021-02-04] MEDS: pantoprazole DR 40 mg Tablet PO (09:04)
[2021-02-04] MEDS: zinc gluconate 50 mg Tablet PO (09:04)
[2021-02-04] MEDS: apixaban 5 mg Tablet PO (09:04)
[2021-02-04 09:05] LABS: Vancomycin Random 6.9 ug/mL (20.0-40.0)
[2021-02-04] MEDS: vancomycin 1,000 MG in sodium chloride 0.9% 250 ML 250 MG IV (10:01)
[2021-02-04] MEDS: heparin 5,000 unit/mL INJ 1 mL 5000 UNIT SUBCUT ×2 (10:01→20:43)
--- NOTE | 2021-02-04 16:39 | PC.NURSE ---
Shift Note Frequent safety and comfort rounds continue. Patient to be placed back on isolation precautions today and to be retested for covid today per physician?s order. Orders and nursing care completed as indicated. Patient started on primaxin today and zoysn was discontinued per physician?s orders. See mar. Pt currently on 0.3mcg/kg/hr of precedex, with plans to transfer patient to CSU tomorrow. Patient monitored for response to intervention and treatments. Education provided to family included covid testing and information on medications patient is currently receiving. Patient family verbalized understanding. Will continue to monitor.
--- NOTE | 2021-02-04 17:00 | P.PN_ITS ---
Subjective Subjective: Interval history: Patient was calm. Has remained hemodynamically stable and afebrile. Today morning she is saturating 92% 100% FiO2 heated high flow. ABG showed hypoxia she was placed on BiPAP. On examination patient is awake, at her baseline. Son at bedside. Patient was placed back on heated high flow and was saturating between 86 to 88%. Goals of care discussed with son and daughter on phone. They state they would not want her mother to suffer and mother would have not wanted to be on life support. They do not want patient to be intubated or resuscitated though for now they want the patient to have complete care otherwise. CODE STATUS change in the system to DNR/DNI. Vitals/I&O/Wt Last Vital Signs Temp 97.9 F 02/04/21 04:00 Pulse 89 02/04/21 12:30 Resp 25 H 02/04/21 12:03 BP 111/85 02/04/21 12:30 Pulse Ox 92 02/04/21 12:03 02/04/21 02/04/21 02/04/21 06:59 14:59 22:59 Intake Total 1549.313 / 2049.313 400 / 400 168.975 / 568.975 Output Total 450 / 1950 Balance 1099.313 / 99.313 400 / 400 168.975 / 568.975 Weight last 48 hrs Weight 61.416 kg Weight 61.859 kg Physical Exam Narrative: EXAM NARRATIVE: General: No acute distress, AO x 2, mildly confused HEENT: PERRLA, pupils bilaterally equal and reactive Chest: Bilateral bronchial breath sounds all over the lung mendoza, but right more than left, occasional rhonchi present all over the lung mendoza equal good air entry bilaterally CVS: S1-S2 regular, no murmurs, no tachycardia, no gallops, no rubs Abdomen: Soft, nontender, no organomegaly, bowel sounds present Neuro: No focal deficits, no facial deformity, AO x3, power 5/5 in all limbs Urinary Catheter Management^: Greco: Cath Placed During This Visit: yes Reason for Continuing Indwelling Catheter: Accurate Measurement of Urinary Output in Critically Ill Patients Urinary Catheter Date of Insertion: 02/03/21 Urinary Catheter Time of Insertion: 10:45 Data : 02/04/21 05:35 02/04/21 05:35 Micro: Microbiology 02/03/21 10:45 Legionella Urinary Antigen - Final Urine Catheterized 02/03/21 10:45 Bacterial Antigens - Final Urine Kidney A&P Assessment and plan (1) AMS (altered mental status): Status: Acute (2) Hypoxia: Status: Acute (3) Bilateral pneumonia: Status: Acute (4) Community acquired pneumonia: Status: Acute Qualifiers: Laterality: right Lung location: middle lobe of lung Qualified Code(s): J18.9 - Pneumonia, unspecified organism (5) Hypertension: Status: Acute (6) Central hypothyroidism: Status: Acute (7) Dementia: Status: Acute Additional A&P Information AMS: 2/2 metabolic encephalopathy from sepsis due to pneumonia, hypoxia in setting of baseline dementia. Check CTA head. C/w home dose of celexa, cymbalata. Add Aricept nightly. Wean precedex as able to. Sitter Frequest re-orientation. Severe hypoxia secondary to bilateral pneumonia: COVID-19 PCR came back negative. Given severe hypoxia, extensive CT findings we will repeat COVID-19 PCR to confirm. Check respiratory viral panel. Repeat ABG in a.m. BiPAP ventilation to maintain saturation over 92% with breathing between during meals. For now hold off on dexamethasone and remdesivir. Switch to Solu-Medrol 40 every 8 hourly. Vitamin C, zinc. DuoNebs every 6 hour, budesonide twice daily Pulmonary toilet with incentive spirometry flutter valve. CTA negative for pulmonary embolism. Heparin for DVT prophylaxis. Sputum culture still awaited. Urine Legionella, bacterial antigen negative. For now continue with vancomycin and imipenem. Strict input output charting, daily weights. Greco catheterization. Echocardiogram results awaited. Hypertension: Goal of pressure less than 140/90 mmhg with MAP 65. Hold Amlo or now. Central hypothyroidism: Low TSH, low free T3 and T4. Can not check cortisol level as already on dexamethasone. Start on levothyroxine 50 mcg Will need to d/c on oral steroid till follow up with endocrine in office for high likely che of concomitant central AI Continue other chronic home medication including citalopram and duloxetine. CODE STATUS changed to DNR/DNI after speaking with patient's DPOA son Keron and daughter Leonila Heparin for DVT prophylaxis. Protonix for PUD prophylaxis. Attestations Medical Necessity Statement*: Requires further care for management of hypoxia secondary to bilateral pneumonia, possible COVID-19, altered mental status Time Spent in Patient Care: Greater than 35 minutes (>than 50% of time spent in counselling and/or direct pt care on unit) . Coding Level of Care Code Acute Hall Director for g Fwd Diagnoses AMS (altered mental status) R41.82 Hypoxia R09.02 Bilateral pneumonia J18.9 Community acquired pneumonia J18.9 Laterality: right Lung location: middle lobe of lung Hypertension I10 Central hypothyroidism E03.8 Dementia F03.90
[2021-02-04] MEDS: donepezil 5 MG Tablet 10 MG PO (20:43)
[2021-02-05] VITALS (26 sets, daily range): BP systolic 133–169; BP diastolic 58–98; PULSE 62–103; RESP 20–29; TEMP 36.6–36.8; O2SAT 90–96
[2021-02-05] MEDS: sodium chloride 0.9% 1,000 ML 50 ML IV (00:46)
[2021-02-05] MEDS: ipratropium-albuterol 3 mL Neb INHALATION ×5 (03:17→20:25)
[2021-02-05] MEDS: levothyroxine 50 mcg Tablet PO (06:15)
[2021-02-05 06:18] LABS: Basophils % 0.2 %; Hematocrit 38.7 % (37.0-47.0); Hemoglobin 12.8 g/dL (11.5-15.3); Lymphocytes # 0.4 10^3/uL (0.8-4.8); Mean Corpuscular HGB Conc 33.1 g/dL (30.0-36.0); Mean Corpuscular Hemoglobin 34.1 pg (28.0-34.0); Mean Corpuscular Volume 103.2 fl (81-99); Mean Platelet Volume 10.6 fL (7.4-10.4); Monocytes # 0.8 10^3/uL (0.2-0.9); Monocytes % 4.1 %; Neutrophils # 17.73 10^3/uL (1.8-7.7); Neutrophils % 91.8 %; Nucleated Red Blood Cells # 0.1 /100WBC; Nucleated Red Blood Cells % 0.4 %; Platelet Count 200 10^3/cmm (130-400); Red Blood Count 3.75 10^6/uL (4.1-5.3); Red Cell Distribution Width 15.4 % (12.1-15.1); White Blood Count 19.3 10^3/uL (4.0-10.0)
--- NOTE | 2021-02-05 06:22 | PC.NURSE ---
Patient remains on bipap throughout shift. Patient had multiple attempts at removing bipap resulting in desat episodes; when placed back on bipap properly patient oxygen saturation increased. Patient slightly hypertensive throughout shift, but afebrile. Patient remains in restraints with ROM opportunities along with encouragement and help with drinking/eating. Will continue to monitor.
[2021-02-05 06:55] LABS: Alanine Aminotransferase 24 U/L (0-33); Albumin Level 3.5 g/dL (3.5-5.2); Alkaline Phosphatase 189 IU/L (35-105); Anion Gap 19.1 (5-19); Aspartate Amino Transferase 99 U/L (0-32); Blood Urea Nitrogen 28 mg/dL (8-23); Calcium 8.2 mg/dL (8.5-10.5); Carbon Dioxide 22 mmol/L (22-29); Chloride 110 mmol/L (98-107); Creatinine Clr Calc Pharmacy 51.9661; Glucose 156 mg/dL (65-115); Osmolality Calculated 315 mOsm/kg (285-295); Potassium 3.1 mmol/L (3.5-5.1); Sodium 148 mmol/L (136-145); Total Bilirubin 0.4 mg/dL (0.15-1.2); Total Protein 6.5 g/dL (6.6-8.7)
[2021-02-05] MEDS: ascorbic acid 500 mg Tablet PO (08:06)
[2021-02-05] MEDS: zinc gluconate 50 mg Tablet PO (08:06)
[2021-02-05] MEDS: pantoprazole DR 40 mg Tablet PO (08:06)
[2021-02-05] MEDS: duloxetine 30 mg Capsule PO (08:06)
[2021-02-05] MEDS: citalopram 20 mg Tablet PO (08:06)
[2021-02-05] MEDS: budesonide 0.5 mg/2 mL Neb INHALATION ×2 (08:10→20:25)
[2021-02-05] MEDS: heparin 5,000 unit/mL INJ 1 mL 5000 UNIT SUBCUT ×3 (08:15→23:11)
[2021-02-05] MEDS: D5-NS 0.45% + KCL 20 mEq 20 MEQ/1,000 ML BAG 75 MEQ IV ×2 (09:34→21:54)
[2021-02-05] MEDS: potassium chloride oral liq 20 mEq/15 mL UDC 40 MEQ PO (09:35)
[2021-02-05] MEDS: vancomycin 1,000 MG in sodium chloride 0.9% 250 ML 250 MG IV ×2 (10:16→23:10)
[2021-02-05 11:23] LABS: Glucose Point of Care 194 mg/dL (70-110)
--- NOTE | 2021-02-05 12:54 | PC.NURSE ---
Report called to CSU nurse ANDREW Fernandez. Pt to be taken to CSU by bed on BIPAP with RT and this nurse at side.
--- NOTE | 2021-02-05 13:06 | PC.SOCIAL ---
IMM update IMM updated with patient's son. Verbalized an understanding. Initialled, dated, timed, and placed in chart.
[2021-02-05 14:55] LABS: Coronavirus Test Green County Not Detected
--- NOTE | 2021-02-05 15:57 | PM.PN ---
Subjective Subjective: Interval history: No acute events overnight. Patient continues to remain on BiPAP. Saturating 95%. 75% BiPAP ventilation. Has remained hemodynamically stable and afebrile. Currently on Precedex of 0.3. Documented urine output in last 24 hours up to 1400 cc. Vitals/I&O/Wt Last Vital Signs Temp 98.1 F 02/05/21 12:00 Pulse 88 02/05/21 15:30 Resp 24 H 02/05/21 15:25 BP 137/74 02/05/21 12:00 Pulse Ox 96 02/05/21 15:25 02/05/21 02/05/21 02/05/21 06:59 14:59 22:59 Intake Total 1302.572 / 2124.046 350 / 350 Output Total 1400 / 1400 Balance -97.428 / 724.046 350 / 350 Weight last 48 hrs Weight 61.689 kg Weight 61.416 kg Physical Exam Narrative: EXAM NARRATIVE: General: No acute distress, AO x 2, mildly confused HEENT: PERRLA, pupils bilaterally equal and reactive Chest: Bilateral bronchial breath sounds all over the lung mendoza, but right more than left, occasional rhonchi present all over the lung mendoza equal good air entry bilaterally CVS: S1-S2 regular, no murmurs, no tachycardia, no gallops, no rubs Abdomen: Soft, nontender, no organomegaly, bowel sounds present Neuro: No focal deficits, no facial deformity, AO x3, power 5/5 in all limbs Urinary Catheter Management^: Greco: Cath Placed During This Visit: yes Reason for Continuing Indwelling Catheter: Accurate Measurement of Urinary Output in Critically Ill Patients Urinary Catheter Date of Insertion: 02/03/21 Urinary Catheter Time of Insertion: 10:45 Data : 02/05/21 06:09 02/05/21 06:09 A&P Assessment and plan (1) AMS (altered mental status): Status: Acute (2) Community acquired pneumonia: Status: Acute Qualifiers: Laterality: right Lung location: middle lobe of lung Qualified Code(s): J18.9 - Pneumonia, unspecified organism (3) Hypoxia: Status: Acute (4) Bilateral pneumonia: Status: Acute (5) Hypernatremia: Status: Acute (6) Hypertension: Status: Acute (7) Central hypothyroidism: Status: Acute (8) Dementia: Status: Acute Additional A&P Information AMS: 2/2 metabolic encephalopathy from sepsis due to pneumonia, hypoxia in setting of baseline dementia along with hypernatremia now. Continue with home dose of Celexa, duloxetine. Continue with Aricept. We will try to wean off Precedex as possible. CTA head negative. Sitter Frequest re-orientation. Severe hypoxia secondary to bilateral pneumonia: COVID-19 PCRx2 negative. Remove isolation precautions. COVID-19 PCR came back negative. BiPAP ventilation to maintain saturation over 92% with breathing between during meals. Continue with Solu-Medrol 40 every 8 hourly. DuoNebs every 6 hour, budesonide twice daily Pulmonary toilet with incentive spirometry flutter valve. CTA negative for pulmonary embolism. Heparin for DVT prophylaxis. Sputum culture still awaited. Urine Legionella, bacterial antigen negative. For now continue with vancomycin and imipenem. Strict input output charting, daily weights. Greco catheterization. Echocardiogram results appreciated. Hypernatremia: Most likely secondary to dehydration from poor oral intake. Start patient on D5 half NS at 75 cc/h. Repeat CMP in afternoon. Hypertension: Goal of pressure less than 140/90 mmhg with MAP 65. Hold Amlo or now. Central hypothyroidism: Low TSH, low free T3 and T4. Can not check cortisol level as already on dexamethasone. Start on levothyroxine 50 mcg Will need to d/c on oral steroid till follow up with endocrine in office for high likely che of concomitant central AI Continue other chronic home medication including citalopram and duloxetine. CODE STATUS changed to DNR/DNI after speaking with patient's DPOA son Keron and daughter Leonila Heparin for DVT prophylaxis. Protonix for PUD prophylaxis. Can transfer out of ICU to [facility] where she can get Precedex drip as well. Patient's care discussed in detail with her son Mr. Cabrales over the phone. Left a message for her daughter Leonila over the phone as well. Attestations Medical Necessity Statement*: Requires further hospitalization for management of hypoxia secondary to bilateral pneumonia, altered mental status, hypernatremia Time Spent in Patient Care: Greater than 35 minutes (>than 50% of time spent in counselling and/or direct pt care on unit). 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
[2021-02-05] MEDS: haloperidol inj 5 mg/mL INJ 1 mL 1 MG IVP (15:58)
[2021-02-05 16:01] LABS: Basophils % 0.2 %; Hematocrit 36.2 % (37.0-47.0); Hemoglobin 11.8 g/dL (11.5-15.3); Lymphocytes # 0.4 10^3/uL (0.8-4.8); Mean Corpuscular HGB Conc 32.6 g/dL (30.0-36.0); Mean Corpuscular Hemoglobin 33.9 pg (28.0-34.0); Monocytes # 0.8 10^3/uL (0.2-0.9); Monocytes % 4.3 %; Neutrophils # 16.81 10^3/uL (1.8-7.7); Neutrophils % 91.2 %; Nucleated Red Blood Cells # 0.1 /100WBC; Nucleated Red Blood Cells % 0.3 %; Platelet Count 162 10^3/cmm (130-400); Red Blood Count 3.48 10^6/uL (4.1-5.3); Red Cell Distribution Width 15.6 % (12.1-15.1); White Blood Count 18.4 10^3/uL (4.0-10.0)
[2021-02-05 16:27] LABS: Alanine Aminotransferase 20 U/L (0-33); Albumin Level 3.1 g/dL (3.5-5.2); Alkaline Phosphatase 219 IU/L (35-105); Anion Gap 18.9 (5-19); Aspartate Amino Transferase 69 U/L (0-32); Blood Urea Nitrogen 20 mg/dL (8-23); Calcium 8.2 mg/dL (8.5-10.5); Carbon Dioxide 19 mmol/L (22-29); Chloride 112 mmol/L (98-107); Creatinine Clr Calc Pharmacy 51.9661; Globulin 2.9 g/dL (1.3-4.6); Glucose 161 mg/dL (65-115); Osmolality Calculated 310 mOsm/kg (285-295); Sodium 147 mmol/L (136-145); Total Bilirubin 0.4 mg/dL (0.15-1.2)
[2021-02-05 16:35] LABS: Potassium 2.9 mmol/L (3.5-5.1)
[2021-02-05 17:35] LABS: Glucose Point of Care 174 mg/dL (70-110)
[2021-02-05 20:35] LABS: Glucose Point of Care 176 mg/dL (70-110)
--- NOTE | 2021-02-05 21:04 | PC.NURSE ---
Pt switched to HHF for nightly PO meds. Pt desated quickly and placed back on BIPAP. Messaged Dr. Cerda and received order to switch to IV potassium and to hold donepezil and ascorbic acid.
[2021-02-05] MEDS: lidocaine 1% 5 ML in potassium chloride premix 100 ML 25 ML IV (21:51)
[2021-02-05] MEDS: dexmedetomidine 400 MCG in sodium chloride 0.9% (100 ml) 100 ML IV (21:53)
[2021-02-05] MEDS: levofloxacin-dextrose 5 % 500 MG/100 ML PREMIX 100 MG IV (23:10)
[2021-02-06] VITALS (59 sets, daily range): BP systolic 104–178; BP diastolic 67–117; PULSE 60–195; RESP 8–38; TEMP 36.6–36.8; O2SAT 75–97
[2021-02-06] MEDS: haloperidol inj 5 mg/mL INJ 1 mL 1 MG IVP ×2 (00:49→08:44)
[2021-02-06] MEDS: ipratropium-albuterol 3 mL Neb INHALATION ×5 (00:56→23:50)
[2021-02-06] MEDS: lidocaine 1% 5 ML in potassium chloride premix 100 ML 25 ML IV (02:15)
[2021-02-06 04:35] LABS: Basophils # 0.1 10^3/uL (0.0-0.1); Basophils % 0.4 %; Hematocrit 35.3 % (37.0-47.0); Lymphocytes # 0.5 10^3/uL (0.8-4.8); Lymphocytes % 2.3 %; Mean Corpuscular Hemoglobin 34.2 pg (28.0-34.0); Mean Corpuscular Volume 100.6 fl (81-99); Mean Platelet Volume 10.8 fL (7.4-10.4); Monocytes # 0.8 10^3/uL (0.2-0.9); Monocytes % 3.5 %; Neutrophils # 20.44 10^3/uL (1.8-7.7); Neutrophils % 91.2 %; Nucleated Red Blood Cells # 0.1 /100WBC; Nucleated Red Blood Cells % 0.4 %; Platelet Count 149 10^3/cmm (130-400); Red Blood Count 3.51 10^6/uL (4.1-5.3); Red Cell Distribution Width 15.3 % (12.1-15.1); White Blood Count 22.4 10^3/uL (4.0-10.0)
[2021-02-06 05:26] LABS: Alanine Aminotransferase 25 U/L (0-33); Albumin Level 3.2 g/dL (3.5-5.2); Alkaline Phosphatase 288 IU/L (35-105); Blood Urea Nitrogen 15 mg/dL (8-23); Calcium 8.3 mg/dL (8.5-10.5); Carbon Dioxide 22 mmol/L (22-29); Chloride 112 mmol/L (98-107); Globulin 2.8 g/dL (1.3-4.6); Glucose 149 mg/dL (65-115); Osmolality Calculated 308 mOsm/kg (285-295); Sodium 147 mmol/L (136-145); Total Bilirubin 0.6 mg/dL (0.15-1.2)
[2021-02-06] MEDS: levothyroxine 50 mcg Tablet PO (05:38)
[2021-02-06 05:46] LABS: Aspartate Amino Transferase 72 U/L (0-32)
--- NOTE | 2021-02-06 06:00 | XRR_ITS ---
PROCEDURE INFORMATION: Exam: XR Chest Exam date and time: 02/06/2021 6:00 AM Age: 75 years old Clinical indication: Shortness of breath; Additional info: Pna TECHNIQUE: Imaging protocol: XR of the chest. Views: 1 view. COMPARISON: CR XR chest 1V portable [id number] 02/03/2021 5:41 AM FINDINGS: Lungs: There are prominent diffuse bilateral pulmonary interstitial and consolidative infiltrates which are consistent with bilateral pneumonia. The basilar consolidation is worsening since previous study. Pleural spaces: Small bilateral pleural effusions greater on the right side. Heart/Mediastinum: Unremarkable. No cardiomegaly. Bones/joints: Unremarkable. XR/XR chest 1V portable [id number] IMPRESSION: 1. Extensive bilateral pulmonary infiltrates. Basilar infiltrates are worsening since previous study. 2. Small bilateral pleural effusions.
--- NOTE | 2021-02-06 06:11 | PC.NURSE ---
Shift Note Frequent safety and comfort rounds continue. Orders and/or nursing care completed as indicated. Patient was restless and agitated throughout the night. Administered Haldol at 0049. Patient monitored for response to intervention and treatment(s). Education provided includes importance of BIPAP compliance. Patient and/or route service representative needs reinforcement. Will continue to monitor.
[2021-02-06 07:07] LABS: Glucose Point of Care 160 mg/dL (70-110)
[2021-02-06 10:29] LABS: Lactate Dehydrogenase 1891 U/L (135-214)
[2021-02-06] MEDS: heparin 5,000 unit/mL INJ 1 mL 5000 UNIT SUBCUT ×3 (10:31→22:47)
[2021-02-06 10:37] LABS: Procalcitonin 0.27 ng/mL (0-0.5)
[2021-02-06] MEDS: vancomycin 1,000 MG in sodium chloride 0.9% 250 ML 250 MG IV (11:57)
[2021-02-06] MEDS: D5-NS 0.45% + KCL 20 mEq 20 MEQ/1,000 ML BAG 75 MEQ IV (12:10)
[2021-02-06 12:42] LABS: Glucose Point of Care 193 mg/dL (70-110)
--- NOTE | 2021-02-06 14:44 | ECG_ITS ---
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 Measurements Intervals [place] Rate: 122 P: OR: QRS: -29 QRSD: 97 T: 259 QT: 288 QTc: 411 Interpretive Statements ATRIAL FIBRILLATION WITH RAPID VENTRICULAR RESPONSE POSSIBLE ANTERIOR MYOCARDIAL INFARCTION , OF INDETERMINATE AGE [30 ms Q WAVE IN V3/V4, OR R < 0.2 mV IN V4] Compared to ECG 02/02/2021 00:40:16 Sinus rhythm no longer present Myocardial infarct finding still present Electronically Signed On 02-06-2021 21:32:34 CDT by Kevin Luque M.D. [id number]
[2021-02-06] MEDS: metoprolol tartrate 1 mg/1 mL SDV 5 mL 5 MG IVP (15:01)
[2021-02-06] MEDS: FUROsemide 10 mg/mL SDV 4mL 40 MG IVP (15:01)
[2021-02-06] MEDS: morphine 4 mg/mL SDV 1 mL 2 MG IVP ×2 (15:34→23:52)
[2021-02-06 16:53] LABS: Glucose Point of Care 132 mg/dL (70-110)
[2021-02-06] MEDS: dexmedetomidine 400 MCG in sodium chloride 0.9% (100 ml) 100 ML IV (17:35)
--- NOTE | 2021-02-06 18:11 | PM.PN ---
Subjective Subjective: Interval history: Patient seen multiple times during the day. Sitter at bedside. Patient has remained on BiPAP. On trying to get off of the BiPAP to heated high flow 100% she saturates 76%. Patient is awake and alert x1-2 at her baseline. No complaints. During the day patient started having atrial fibrillation with rapid ventricle response for which she was started on IV Cardizem. Vitals/I&O/Wt Last Vital Signs Temp 97.9 F 02/07/21 08:00 Pulse 107 H 02/07/21 08:00 Resp 20 H 02/07/21 08:00 BP 111/64 02/07/21 08:00 Pulse Ox 94 02/07/21 08:00 02/06/21 02/07/21 02/07/21 22:59 06:59 14:59 Intake Total 392.787 / 2807.780 7402 / 3727.787 112.167 / 112.167 Output Total 700 / 700 1150 / 1850 Balance -307.213 / 1147.787 730 / 1877.787 112.167 / 112.167 Weight last 48 hrs Weight 49.895 kg Weight 49.986 kg Physical Exam Narrative: EXAM NARRATIVE: General: No acute distress, AO x 2, mildly confused HEENT: PERRLA, pupils bilaterally equal and reactive Chest: Bilateral bronchial breath sounds all over the lung mendoza, but right more than left, occasional rhonchi present all over the lung mendoza equal good air entry bilaterally CVS: S1-S2 irregularly irregular, no murmurs, no tachycardia, no gallops, no rubs Abdomen: Soft, nontender, no organomegaly, bowel sounds present Neuro: No focal deficits, no facial deformity, AO x3, power 5/5 in all limbs Urinary Catheter Management^: Greco: Cath Placed During This Visit: yes Reason for Continuing Indwelling Catheter: Accurate Measurement of Urinary Output in Critically Ill Patients Urinary Catheter Date of Insertion: 02/03/21 Urinary Catheter Time of Insertion: 10:45 Data : 02/07/21 10:50 02/07/21 10:50 Micro: Microbiology 02/02/21 01:43 Blood Culture - Final Blood NO GROWTH AFTER 5 DAYS 02/02/21 01:43 Blood Culture - Final Blood NO GROWTH AFTER 5 DAYS A&P Assessment and plan (1) AMS (altered mental status): Status: Acute (2) Community acquired pneumonia: Status: Acute Qualifiers: Laterality: right Lung location: middle lobe of lung Qualified Code(s): J18.9 - Pneumonia, unspecified organism (3) Hypoxia: Status: Acute (4) Bilateral pneumonia: Status: Acute (5) Hypernatremia: Status: Acute (6) Hypertension: Status: Acute (7) Central hypothyroidism: Status: Acute (8) Dementia: Status: Acute (9) Atrial fibrillation: Status: Acute Additional A&P Information AMS: 2/2 metabolic encephalopathy from sepsis due to pneumonia, hypoxia in setting of baseline dementia along with hypernatremia now. Continue with home dose of Celexa, duloxetine. Continue with Aricept. We will try to wean off Precedex as possible. CTA head negative. Sitter Frequest re-orientation. Severe hypoxia secondary to bilateral pneumonia: COVID-19 PCRx2 negative. Remove isolation precautions. COVID-19 PCR came back negative. BiPAP ventilation to maintain saturation over 92% with breathing between during meals. Wean Solu-Medrol to 40 mg IV daily. DuoNebs every 6 hour, budesonide twice daily Pulmonary toilet with incentive spirometry flutter valve. CTA negative for pulmonary embolism. Heparin for DVT prophylaxis. Sputum culture still awaited. Urine Legionella, bacterial antigen negative. For now continue with vancomycin and imipenem. LDH checked. More than 1800. For now because patient is critically sick will start empirically on Bactrim for PCP pneumonia. 15 to 20 mg/kg body weight into 3 divided doses. Will monitor renal functions. Strict input output charting, daily weights. Greco catheterization. Echocardiogram results appreciated. Hypernatremia: Resolving. Most likely secondary to dehydration from poor oral intake. Continue with D5 half NS at 75 cc/h. Repeat CMP in afternoon. Atrial fibrillation: Start patient on Cardizem drip. Will uptitrate as per the heart rate and blood pressure. Telemetry. Hypertension: Goal of pressure less than 140/90 mmhg with MAP 65. Hold Amlo or now. Central hypothyroidism: Low TSH, low free T3 and T4. Can not check cortisol level as already on dexamethasone. Start on levothyroxine 50 mcg Will need to d/c on oral steroid till follow up with endocrine in office for high likely che of concomitant central AI Continue other chronic home medication including citalopram and duloxetine. CODE STATUS changed to DNR/DNI after speaking with patient's DPOA son Keron and daughter Leonila. Further goals of care were discussed in detail with patient's daughter and son over the phone. We discussed that patient is requiring high oxygen supplementation/BiPAP ventilation at present to maintain a saturation over 90%. We also discussed that at this time patient is BiPAP dependent in her care is becoming complicated by her having worsening altered mental status most likely from hypernatremia and sepsis worsening her dementia. Daughter states she is coming in from [place] and would most likely need be in [place] by evening. Family is considering comfort measures but wants to hold off until whole family can be bedside. Heparin for DVT prophylaxis. Protonix for PUD prophylaxis. Severely guarded prognosis. Attestations Medical Necessity Statement*: Patient requires further hospitalization for management of severe hypoxia secondary to pneumonia, atrial fibrillation while further goals of care are discussed. Time Spent in Patient Care: Greater than 35 minutes (>than 50% of time spent in counselling and/or direct pt care on unit). Coding Level of Care Code Acute Principal Secretary for [facility] Fwd Diagnoses AMS (altered mental status) R41.82 Community acquired pneumonia J18.9 Laterality: right Lung location: middle lobe of lung Hypoxia R09.02 Bilateral pneumonia J18.9 Hypernatremia E87.0 Hypertension I10 Central hypothyroidism E03.8 Dementia F03.90 Atrial fibrillation I48.91
--- NOTE | 2021-02-06 18:37 | PC.NURSE ---
Patient's HR has been elevated 150-200 with a BP of 120/96. Dr. Catalan notified.. Orders have been put in.
--- NOTE | 2021-02-06 19:26 | PC.NURSE ---
Shift Note Frequent safety and comfort rounds continue. Orders and/or nursing care completed as indicated. Patient monitored for response to intervention and treatment(s). Education provided includes BiPap use, medication compliance, the importance of trying to eat. Patient and/or fulfillment representative unable to comprehend, reinforcement needed. Will continue to monitor.
[2021-02-06] MEDS: budesonide 0.5 mg/2 mL Neb INHALATION (20:03)
[2021-02-06 20:48] LABS: Vancomycin Trough 22.6 ug/mL (10-15)
[2021-02-06 20:58] LABS: Glucose Point of Care 158 mg/dL (70-110)
[2021-02-06] MEDS: levofloxacin-dextrose 5 % 500 MG/100 ML PREMIX 100 MG IV (21:14)
[2021-02-06] MEDS: sulfamethoxazole-trimeth inj 480 MG in dextrose 5 % 500 ML 500 MG IV (22:48)
[2021-02-07] VITALS (11 sets, daily range): BP systolic 96–129; BP diastolic 64–76; PULSE 84–160; RESP 19–22; TEMP 36.6–36.9; O2SAT 91–95
[2021-02-07] MEDS: D5-NS 0.45% + KCL 20 mEq 20 MEQ/1,000 ML BAG 75 MEQ IV (01:51)
[2021-02-07] MEDS: vancomycin 1,000 MG in sodium chloride 0.9% 250 ML 250 MG IV (04:16)
[2021-02-07] MEDS: ipratropium-albuterol 3 mL Neb INHALATION ×2 (04:20→07:50)
[2021-02-07] MEDS: morphine 4 mg/mL SDV 1 mL 2 MG IVP (05:10)
[2021-02-07] MEDS: levothyroxine 50 mcg Tablet PO (06:39)
[2021-02-07 06:47] LABS: Glucose Point of Care 114 mg/dL (70-110)
[2021-02-07] MEDS: heparin 5,000 unit/mL INJ 1 mL 5000 UNIT SUBCUT (07:35)
[2021-02-07] MEDS: budesonide 0.5 mg/2 mL Neb INHALATION (07:50)
--- NOTE | 2021-02-07 07:50 | PC.NURSE ---
Bedside report received from Araceli MORALES. Patient is resting in bed with restraints loose at this time, she does not appear to be in distress. Patient will open her eyes to her name but does not verbally respond. Nurse will continue to monitor.
--- NOTE | 2021-02-07 08:28 | PC.SOCIAL ---
IMM update IMM updated with patient's son. Verbalized an understanding. Initialled, dated, timed, and placed in chart.
[2021-02-07] MEDS: FUROsemide 10 mg/mL SDV 4mL 40 MG IVP (09:52)
[2021-02-07 11:27] LABS: Basophils # 0.1 10^3/uL (0.0-0.1); Basophils % 0.4 %; Eosinophils % 0.1 %; Hematocrit 36.1 % (37.0-47.0); Hemoglobin 12.1 g/dL (11.5-15.3); Lymphocytes % 4.5 %; Mean Corpuscular HGB Conc 33.5 g/dL (30.0-36.0); Mean Corpuscular Hemoglobin 33.3 pg (28.0-34.0); Mean Corpuscular Volume 99.4 fl (81-99); Mean Platelet Volume 11.2 fL (7.4-10.4); Monocytes # 0.4 10^3/uL (0.2-0.9); Monocytes % 1.7 %; Neutrophils # 18.68 10^3/uL (1.8-7.7); Neutrophils % 88.4 %; Nucleated Red Blood Cells # 0.2 /100WBC; Nucleated Red Blood Cells % 0.8 %; Platelet Count 97 10^3/cmm (130-400); Red Blood Count 3.63 10^6/uL (4.1-5.3); Red Cell Distribution Width 15.4 % (12.1-15.1); White Blood Count 21.1 10^3/uL (4.0-10.0)
[2021-02-07] MEDS: sulfamethoxazole-trimeth inj 480 MG in dextrose 5 % 500 ML 500 MG IV (11:43)
[2021-02-07 11:47] LABS: Alanine Aminotransferase 23 U/L (0-33); Albumin Level 2.9 g/dL (3.5-5.2); Alkaline Phosphatase 357 IU/L (35-105); Aspartate Amino Transferase 68 U/L (0-32); Blood Urea Nitrogen 19 mg/dL (8-23); Calcium 7.7 mg/dL (8.5-10.5); Carbon Dioxide 23 mmol/L (22-29); Chloride 108 mmol/L (98-107); Creatinine Clr Calc Pharmacy 34.4519; Globulin 2.3 g/dL (1.3-4.6); Glucose 188 mg/dL (65-115); Osmolality Calculated 307 mOsm/kg (285-295); Sodium 145 mmol/L (136-145); Total Bilirubin 0.5 mg/dL (0.15-1.2); Total Protein 5.2 g/dL (6.6-8.7)
[2021-02-07 11:58] LABS: Glucose Point of Care 205 mg/dL (70-110)
[2021-02-07 12:03] LABS: Anion Gap 17.4 (5-19); Potassium 3.4 mmol/L (3.5-5.1)
[2021-02-07] MEDS: morphine 4 mg/mL SDV 1 mL IVP ×2 (13:19→13:35)
[2021-02-07] MEDS: LORazepam 2 mg/mL INJ 1 mL IVP ×2 (13:20→13:43)
--- NOTE | 2021-02-07 13:21 | PC.NURSE ---
Comfort care started at 1320. Family at bedside. Will continue to provide support and medication to help with comfort.
--- NOTE | 2021-02-07 13:23 | P.PN_ITS ---
Subjective Subjective: Interval history: Patient seen multiple times during the day. Today morning on examination she continues him on BiPAP ventilation. Heart rate better controlled. Hemodynamically has remained stable. Saturating 96%. She wakes up and tells me that she is not in any discomfort. Denies any nausea or vomiting. Wants the BiPAP to be taken off. During the day when seen again with family at bedside. Further goals of care were discussed we discussed that she was started on treatment for PCP pneumonia empirically because of increased LDH and consolidation on CT imaging. We discussed at this point we have 2 options one option being to continue treatment for PCP pneumonia for next 48 hours and see how she does versus comfort measures right now. Patient's daughter becky states that patient would not have wanted to live like this and they do not like to see her suffer so would want to go ahead with comfort measures at present. CODE STATUS change in the system. Vitals/I&O/Wt Last Vital Signs Temp 97.9 F 02/07/21 08:00 Pulse 112 H 02/07/21 12:00 Resp 22 H 02/07/21 12:00 BP 105/74 02/07/21 12:00 Pulse Ox 95 02/07/21 12:00 02/06/21 02/07/21 02/07/21 22:59 06:59 14:59 Intake Total 392.787 / 6104.839 1568 / 3727.787 212.167 / 212.167 Output Total 700 / 700 1150 / 1850 Balance -307.213 / 1147.787 730 / 1877.787 212.167 / 212.167 Weight last 48 hrs Weight 49.895 kg Weight 49.986 kg Physical Exam Narrative: EXAM NARRATIVE: General: No acute distress, AO x 2, mildly confused HEENT: PERRLA, pupils bilaterally equal and reactive Chest: Bilateral bronchial breath sounds all over the lung mendoza, but right more than left, occasional rhonchi present all over the lung mendoza equal good air entry bilaterally CVS: S1-S2 irregularly irregular, no murmurs, no tachycardia, no gallops, no rubs Abdomen: Soft, nontender, no organomegaly, bowel sounds present Neuro: No focal deficits, no facial deformity, AO x3, power 5/5 in all limbs Urinary Catheter Management^: Greco: Cath Placed During This Visit: yes Reason for Continuing Indwelling Catheter: Accurate Measurement of Urinary Output in Critically Ill Patients Urinary Catheter Date of Insertion: 02/03/21 Urinary Catheter Time of Insertion: 10:45 Data : 02/07/21 10:50 02/07/21 10:50 Micro: Microbiology 02/02/21 01:43 Blood Culture - Final Blood NO GROWTH AFTER 5 DAYS 02/02/21 01:43 Blood Culture - Final Blood NO GROWTH AFTER 5 DAYS A&P Assessment and plan (1) AMS (altered mental status): Status: Acute (2) Community acquired pneumonia: Status: Acute Qualifiers: Laterality: right Lung location: middle lobe of lung Qualified Code(s): J18.9 - Pneumonia, unspecified organism (3) Hypoxia: Status: Acute (4) Bilateral pneumonia: Status: Acute (5) Hypernatremia: Status: Acute (6) Hypertension: Status: Acute (7) Central hypothyroidism: Status: Acute (8) Dementia: Status: Acute (9) Atrial fibrillation: Status: Acute Additional A&P Information Patient being treated in the hospital for 2 mental status because of worsening dementia secondary to severe hypoxia/sepsis from pneumonia. Being treated empirically for PCP pneumonia and bacterial pneumonia. COVID-19 PCR negative x2. Patient during hospitalization has developed atrial fibrillation for which she is been treated with Cardizem drip and hypernatremia due to dehydration from poor oral intake however she started on D5 NS. Patient has remained BiPAP dependent for last 3 days and desaturates. After multiple goals of care discussion with the family today family have decided to make patient comfort measures. CODE STATUS change in the system to comfort measures status only. Case management alerted. Morphine and Ativan as needed. Glycopyrrolate as needed as well. Stop any blood work, vital checks. Stop IV antibiotics. Placed on 2 L nasal cannula. Monitor for pain/gasping for air Attestations Medical Necessity Statement*: Patient requires further hospitalization for comfort measures status only. Time Spent in Patient Care: Greater than 35 minutes (>than 50% of time spent in counselling and/or direct pt care on unit) . Coding Level of Care Code Acute Supervisor [employer] for [facility] Fwd Diagnoses AMS (altered mental status) R41.82 Community acquired pneumonia J18.9 Laterality: right Lung location: middle lobe of lung Hypoxia R09.02 Bilateral pneumonia J18.9 Hypernatremia E87.0 Hypertension I10 Central hypothyroidism E03.8 Dementia F03.90 Atrial fibrillation I48.91
--- NOTE | 2021-02-07 14:07 | PM.DDS ---
Discharge Providers DDS Date of Admission: 02/02/21 02:24 Date Summary Completed: 02/07/21 Attending Provider at Admission: Laura Cerda MD Time of : 13:59 Attending Provider at Discharge: Valeriano Catalan MD Primary Care Provider: Amelia Jackman MD DS Diagnoses Hospital Diagnoses (1) AMS (altered mental status): (2) Community acquired pneumonia: Qualifiers: Laterality: right Lung location: middle lobe of lung Qualified Code(s): J18.9 - Pneumonia, unspecified organism (3) Hypoxia: (4) Bilateral pneumonia: (5) Hypernatremia: (6) Hypertension: (7) Central hypothyroidism: (8) Dementia: (9) Atrial fibrillation: Reason for Visit Reason for Visit: confused,sob Summary Date and Time of Date of : 02/07/21 Time of : 13:59 Summary Summary: Malini Wild is a 75 year old female Presenting to the hospital today complaining worsening shortness of breath over the past 1 week. Associated with cough and sputum production. On arrival at the ER O2 sat was noted to be 84% on room air, requiring between 3 to 6 L/min of supplemental oxygen. This is a new oxygen requirement for the patient. She is a lifelong smoker. Denies any fever chills chest pain palpitations or hemoptysis.. CT of the chest is showing bilateral diffuse infiltrates concerning for COVID-19 pneumonia. Patient admitted hospital for hypoxemia secondary to bilateral pneumonia. Empirically she was started on treatment for COVID-19 pneumonia because of concerning CT images. She was also started on broad-spectrum antibiotics concomitantly. COVID-19 PCR came back negative x2. She was continued on IV antibiotics for bacterial pneumonia. Her blood work was also consented for central hypothyroidism for which she was started on IV levothyroxine and continued on IV steroids. Her care was complicated by her worsening altered mental status for which she was transferred to ICU and started on Precedex drip, hypernatremia because of poor oral intake progressively he was started on D5W and her developing atrial fibrillation with rapid ventricular response for which he started on IV Cardizem drip. Patient's blood work also revealed high LDH. She was started on IV Bactrim for concerning CT images for possible PCP pneumonia with high LDH. Further goals of care discussions were done with family including son Mr. Cabrales and daughter Ms. Keen. Given her critical illness, poor baseline quality of life because of worsening dementia patient's family decided to make her comfort measures on February 07. Patient on February 07 at 1:59 PM with family at bedside with comfort measures status only. Additional Data Confirmation of as documented by pronouncing clinician: no pulse and no respirations Family: at bedside Additional persons at bedside: nursing staff Attending/PCP notified?: I am attending Was code activated?: No Autopsy requested?: No Advance directives?: No Hospice patient?: Yes Discharge Plan Discharge Patient Disposition: Condition: Stable Probable Cause of Probable cause of : Pneumonia DS Attestations Time Spent in /Discharge Care*: greater than 30 min Quality - AMI: AMI present?: No Clinical Trial Participant: No Quality - Stroke: CVA present?: No Quality - VTE: VTE present?: No Deep Vein Thrombosis/Pulmonary Embolism Present on Admission: No Coding Level of Care Code 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
--- NOTE | 2021-02-07 15:43 | PC.NURSE ---
Per Dr. Catalan's order after conferring with patients family, patient was started on Comfort Care @ 1320. Morphine & Ativan administered per protocol. Family at bedside comforting patient. Patient at 1359, confirmed with 2nd nurse Rabia Tinoco & MTS notified by Celebrity Manager Tiffany Ansari RN.
--- NOTE | 2021-02-07 15:54 | PC.NURSE ---
Belongings sent home with patients family
[2021-02-10 16:22] LABS: Adenovirus Not Detected (Not Detected); Human Metapneumovirus Not Detected (Not Detected); Human Parainflu Virus 1 Not Detected (Not Detected); Human Parainflu Virus 2 Not Detected (Not Detected); Human Parainflu Virus 3 Not Detected (Not Detected); Human Rsv A Not Detected (Not Detected); Influenza A Not Detected (Not Detected); Influenza B Not Detected (Not Detected); Rhinovirus/Enterovirus Not Detected (Not Detected)
== END 2021-02-07 15:00 | disposition expired | DRG 193 ==
LOC: ER 02-02 02:49 → ER IP 02-02 04:44 → MEDSURG 02-02 12:51 → ICU 02-02 22:04 → CSU 02-05 13:11
PROVIDERS: Admitting Provider Student in an Organized Health Care Education/Training Program; Emergency Provider Emergency Medicine; PCP Internal Medicine; Visit Provider Student in an Organized Health Care Education/Training Program
DX: J18.9 Pneumonia, unspecified organism (principal); G93.41 Metabolic encephalopathy; E87.0 Hyperosmolality and hypernatremia; E86.0 Dehydration; I10 Essential (primary) hypertension; E03.8 Other specified hypothyroidism; F03.90 Unspecified dementia, unspecified severity, without behavioral disturbance, psychotic disturbance, mood disturbance, and anxiety; Z20.822 Contact with and (suspected) exposure to COVID-19; R09.02 Hypoxemia; Z66 Do not resuscitate; I48.91 Unspecified atrial fibrillation; Z79.890 Hormone replacement therapy; Z99.81 Dependence on supplemental oxygen
CPT/HCPCS: 36415; 36416; 36600; 51702; 70496; 71045; 71260; 71275; 80051; 80053; 80202; 81001; 82330; 82728; 82803; 82805; 82962; 83540; 83550; 83605; 83615; 83735; 83880; 84145; 84439; 84443; 84481; 85025; 85378; 85610; 86140; 86403; 87040; 87426; 87449; 87635; 87641; 87804; 93005; 93306; 94640; 94660; 96365; 96367; 96372; 96375; 99291; 99292; A4570; J0456; J0696; J0743; J1100; J1630; J1644; J1650; J1815; J1940; J1956; J2060; J2270; J2543; J2920; J3370; J3480; J3490; J3535; J7030; J7050; J7626; Q9967